=== PATIENT | male | born 1950 | race Caucasian/White ===

== ENCOUNTER 2016-09-21 10:38 | Inpatient (IN) | payer MEDICARE, OTHER ==
[2016-09-21] MEDS ORDERED: Aspirin Low Dose CHEW TAB* 81 MG PO ONE (12:00)
[2016-09-21] MEDS ORDERED: Nitroglycerin 2% OINT* 1 GM PAK TOPICAL ONE (12:07)
[2016-09-21] MEDS ORDERED: LORazepam INJ* 2 MG/ML 1 ML VIAL IV PUSH ONE (12:07)
[2016-09-21 12:22] LABS: Hematocrit 43 % (42-52); Hemoglobin 14.2 g/dl (14.0-18.0); Mean Corpuscular HGB Conc 33 g/dl (31-36); Mean Corpuscular Hemoglobin 32 pg (27-31); Mean Corpuscular Volume 95 fL (80-94); Mean Platelet Volume 8 um3 (7.4-10.4); Red Blood Count 4.46 10^6/ul (4.0-5.4); Red Cell Distribution Width 14 % (10.5-15); White Blood Count 13.5 10^3/ul (3.5-10.8)
[2016-09-21] MEDS ORDERED: Aspirin EC TAB* 325 MG ONE (12:25)
[2016-09-21] MEDS ORDERED: Nitroglycerin TAB 0.4 MG* 0.4 MG TAB ONE (12:25)
[2016-09-21] MEDS ORDERED: LORazepam INJ* 2 MG/ML 1 ML VIAL ONE ×2 (12:25→15:45)
[2016-09-21] MEDS ORDERED: Aspirin Low Dose CHEW TAB* 81 MG ONE (12:27)
[2016-09-21] MEDS ORDERED: Nitroglycerin 2% OINT* 1 GM PAK ONE (12:30)
[2016-09-21 12:33] LABS: Albumin 4.1 g/dL (3.2-5.2); BUN/Creatinine Ratio 19.8 (8-20); Calcium 8.8 mg/dL (8.6-10.3); EGFR African American 80.8 (>60); EGFR Non-African American 62.8 (>60); Globulin 3.1 g/dL (2-4); Potassium 4.4 mmol/L (3.5-5.0); Total Bilirubin 0.7 mg/dL (0.2-1.0); Total Protein 7.2 g/dL (6.4-8.9)
[2016-09-21] MEDS ORDERED: NS 0.9% 1000 ML* 1,000 ML IV ONE (12:36)
[2016-09-21] MEDS ORDERED: Al Hydrox/Mg Hydrox/Simet LIQ* 30 ML UDC PO ONE (12:41)
[2016-09-21] MEDS ORDERED: Lidocaine 2% VISCOUS* 15 ML UDC PO ONE (12:41)
--- NOTE | 2016-09-21 13:06 | RAD ---
HISTORY: Chest pain COMPARISONS: January 21, 2016 VIEWS:1: Single frontal portable view of the chest at 12:30 PM FINDINGS: LINES AND TUBES: None. CARDIOMEDIASTINAL SILHOUETTE: The cardiomediastinal silhouette is normal for portable technique. PLEURA: The costophrenic angles are sharp. No pleural abnormalities are noted. LUNG PARENCHYMA: There is patchy alveolar opacification of the right lung base ABDOMEN: The upper abdomen is clear. There is no subphrenic gas. BONES AND SOFT TISSUES: No bone or soft tissue abnormalities are noted. IMPRESSION: PATCHY RIGHT BASILAR ATELECTASIS VERSUS CONSOLIDATION.
[2016-09-21] MEDS ORDERED: Thiamine IV* 100 MG, Folic Acid IV* 1 MG, Multiple Vitamin IV ADULT* 10 ML, Magnesium S... IV ONE ×5 (13:42)
[2016-09-21] MEDS ORDERED: Lidocaine 2% VISCOUS* 15 ML UDC ONE (13:55)
[2016-09-21] MEDS ORDERED: Al Hydrox/Mg Hydrox/Simet LIQ* 30 ML UDC ONE (13:55)
[2016-09-21] MEDS ORDERED: Dextrose 50% Syringe 50 ML* 25 GM/50 ML SYRINGE IV PUSH PRN (14:05)
--- NOTE | 2016-09-21 14:46 | RAD ---
HISTORY: r facial droop, slurred speech COMPARISONS: None TECHNIQUE: Multiple contiguous axial CT scans were obtained of the head without intravenous contrast. FINDINGS: HEMORRHAGE/INFARCT: There is no hemorrhage or acute infarct. MASSES/SHIFT: There is no mass or shift. EXTRA-AXIAL SPACES: There are no extra-axial fluid collections. SULCI AND VENTRICLES: The sulci and ventricles are normal in size and position for the patient's stated age. CEREBRUM: There are no focal parenchymal abnormalities. BRAINSTEM: There are no focal parenchymal abnormalities. CEREBELLUM: There are no focal parenchymal abnormalities. VESSELS: The vessels are grossly normal. PARANASAL SINUSES: There is an air-fluid level in the right maxillary sinus ORBITS: The orbits are unremarkable. BONES AND SOFT TISSUE: There is remote post traumatic change to the right face. OTHER: None IMPRESSION: 1. NO ACUTE INTRACRANIAL PATHOLOGY. 2. MILD SINUS MUCOSAL INFLAMMATORY DISEASE, WITH AN AIR-FLUID LEVEL IN THE RIGHT MAXILLARY SINUS. IN THE CORRECT CLINICAL SETTING, THIS MAY REPRESENT ACUTE SINUSITIS
[2016-09-21] MEDS ORDERED: Ondansetron INJ* 2 MG/ML VIAL ONE (15:44)
[2016-09-21] MEDS ORDERED: Nicotine PATCH 14 MG/24 HR* PATCH ONE (15:45)
[2016-09-21] MEDS: Nicotine PATCH 14 MG/24 HR* PATCH TRANSDERM SCH (15:52)
[2016-09-21] MEDS: LORazepam INJ* 2 MG/ML 1 ML VIAL IV PUSH PRN ×2 (15:53→19:51)
[2016-09-21] MEDS: Ondansetron INJ* 2 MG/ML VIAL IV PRN ×2 (15:53→21:20)
[2016-09-21] MEDS: NS 0.9% 1000 ML* 1,000 ML IV SCH ×2 (16:19→19:32)
[2016-09-21] MEDS: Haloperidol INJ IV/IM* 5 MG/ML AMP IV SLOW PU PRN (16:59)
[2016-09-21] MEDS ORDERED: Thiamine IV* 100 MG, Folic Acid IV* 1 MG, Multiple Vitamin IV ADULT* 10 ML in NS 0.9% 1... IV ONE (17:00)
[2016-09-21] MEDS: Insulin LISPRO* 1 UNITS UNIT SUBCUT SCH ×2 (17:40→21:54)
[2016-09-21] MEDS: Calcium Carbonate CHEW TAB* 500 MG (TUMS) PO PRN (19:31)
[2016-09-21 19:33] LABS: Benzodiazepine Urine Screen None Detected (None Detect)
--- NOTE | 2016-09-21 20:35 | HP ---
HISTORY AND PHYSICAL: DATE OF ADMISSION: 09/21/16 PRIMARY CARE PROVIDER: Dr. Meredith. CHIEF COMPLAINT: Vomiting. HISTORY OF PRESENT ILLNESS: Mr. Schmidt is a 66-year-old male with a longstanding history of alcoholism, who had reportedly been sober over the last 10 months and relapsed this past drinking approximately 5 L of vodka since that time. He presented to the emergency room today because of persistent vomiting. The patient in general is a very poor historian. His speech is very slurred. He is able to tell me that his last drink was at approximately 9 o' clock this morning. The ER provider was able to get out that the patient had been having chest pain. When I asked the patient about this, he only states that it becomes worse with stress. He states that his marriage is failing and this is upsetting him. He denies any shortness of breath at this point. The patient has himself not noted the slurred speech or right facial droop that I questioned. Again, it is difficult to obtain any history from the patient as he rambles. PAST MEDICAL HISTORY: 1. Alcoholism. 2. History of PTSD. 3. Type 2 diabetes. 4. COPD. 5. Ongoing tobacco abuse. 6. Chronic pancreatitis. 7. Anxiety. 8. History of peptic ulcer disease. PAST SURGICAL HISTORY: 1. Laparoscopic surgical evaluation of pancreatitis. 2. Tonsillectomy. 3. Vasectomy and vasectomy reversal. MEDICATIONS: 1. Lantus 34 units subcutaneous q.h.s. 2. FiberCon 1250 mg p.o. daily. 3. Ranitidine 150 mg p.o. b.i.d. 4. Dextrose 15 g p.o. daily p.r.n. blood sugar less than 60. ALLERGIES: No known drug allergies. FAMILY HISTORY: The patient's dad at age of 47 of an [place]. Mom had cancer. 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 He is a disabled . He smokes half a pack per day. He smokes up to 1 pack per day. He has been smoking for 50 years. He binge drinks. He states that he will smoke marijuana on occasion. He has 3 children. He is unable to identify who he would want as healthcare proxy. REVIEW OF SYSTEMS: The patient denies any fevers or chills. He states his appetite has been poor since Tuesday noon. He admits to chest pain very vaguely and is unable to give me any further information on this. He admits to cough and shortness of breath, but again is unable to elaborate. He admits to nausea and vomiting. No abdominal pain. No constipation or diarrhea. No dysuria. No focal weakness or sensory loss per the patient. No sudden changes in vision per the patient. No dysphagia. No joint pains or muscle pains out of ordinary. No rashes. He does admit to anxiety. PHYSICAL EXAMINATION GENERAL: The patient is a well-developed, middle-aged, thin male, lying in the stretcher, appears to be in no acute distress. VITAL SIGNS: Blood pressure 146/72, pulse 101, respirations 24, temp 97.4, O2 sat 96% on 2 L. HEENT: Pupils are equal, they are round. Extraocular muscles intact. Oropharynx is clear. Oral mucosa is moist. There is no submandibular, cervical , or supraclavicular adenopathy. Thyroid is not enlarged. No thyroid nodules noted. PULMONARY: Lungs are clear to auscultation bilaterally with slightly decreased breath sounds in all lung godinez. CARDIAC: Normal S1, S2. Heart rate is tachycardic, but regular. I do not appreciate any murmurs. ABDOMEN: Bowel sounds present. Abdomen is soft, nontender, nondistended. EXTREMITIES: There is no lower extremity edema. MUSCULOSKELETAL: There is no cyanosis or clubbing of the digits. There is full active range of motion of all 4 extremities. NEURO: Cranial nerves II through XII are evaluated. The patient appears to have a right facial droop; however, his dentition is asymmetrical on the upper jaw making this somewhat of a difficult evaluation. Upper and lower extremity strength is 5/5 and symmetric bilaterally. PSYCH: The patient is alert, he is oriented x3. He is an incredibly poor historian. He almost seems as if he is intoxicated. Again, he rambles quite a bit. SKIN: Warm and dry. There are no rashes. DIAGNOSTIC STUDIES/LAB DATA: WBC 13.5, hemoglobin 14.2, hematocrit 43, platelets 307. Sodium 139, potassium 4.4, chloride 100, CO2 15, BUN 23, creatinine 1.16, glucose 100, lactic acid 7.5, calcium 8.8. Bilirubin 0.7, AST 37, ALT 23, alk phos 67. Troponin 0. Albumin 4.1. EtOH 229. EKG reveals sinus tachycardia without any acute ST-T wave abnormalities. Chest x-ray reveals patchy right basilar atelectasis versus consolidation. ASSESSMENT AND PLAN: Mr. Schmidt is a 66-year-old male with a longstanding history of alcoholism, anxiety-related posttraumatic stress disorder in serving in [place], and type 2 diabetes, who presents to the emergency room with complaints of ongoing vomiting after binge drinking for the last 5 days, approximately 5 L of vodka over that period of time and also complains of chest pain. 1. Vomiting. I suspect this is related to his alcohol intake. He likely has some alcoholic gastritis as well. The patient had been admitted for this in the past. We will go ahead and make sure he is on a PPI to help with any gastritis that he may be suffering from. He has not vomited recently in the emergency room. He will have p.r.n. Zofran available for nausea. He will be aggressively hydrated, initially with a banana bag, followed by normal saline at 125 mL per hour. 2. Lactic acidosis. I suspect this is related to the patient's drinking alcohol and likely not eating much over the last several days. His lactic acid level will be rechecked this evening at 1800. There are no clear signs of infection at this point despite an elevated white blood cell count. I am going to hold off on antibiotics until something clears itself. 3. Chest pain. The patient really does not describe a chest pain well for me. He does have risk factors for coronary artery disease including his type 2 diabetes, smoking history, age, and a family history. The patient will be continued on aspirin 81 mg p.o. daily. Serial troponins and EKGs will be obtained. I think, however, the patient's chest pain could be secondary to the profuse vomiting that he had been doing. 4. Alcoholism. Currently, the patient is still intoxicated. He will be placed on the [facility] protocol. His alcohol level is elevated at 229. The patient states that he has never withdrawn in the past or required hospitalization for withdrawal in the past. Social work evaluation will be requested. 5. Type 2 diabetes. The patient will be maintained on his usual dose of Lantus with a.c., h.s. glucoses. 6. Posttraumatic stress disorder. The patient states that he takes Klonopin at home for this. This is not on his med list obtained in the emergency room. At this point, he will be on Ativan for WAM protocol and this can be used for anxiety as well. 7. Slurred speech and right facial droop. It is hard to know if this patient' s slurred speech is related to him being intoxicated or if this is truly a neurologic issue. He does have a slight right facial droop; however, his dentition is asymmetric in the upper jaw. I will go ahead and send him for a CAT scan, however. Again, he will be started on an aspirin. 8. DVT prophylaxis. According to the Adult Thrombosis Prophylaxis Risk Factor Assessment Guide, the patient has a total risk factor score of 2 making him moderate risk. He will be placed on heparin 5000 units subcutaneous q.12 hours. 9. Code status is full and again the patient is unable to designate a healthcare proxy at this point. TIME SPENT: Sixty-five minutes was spent admitting this patient. CC: Dr. Meredith* [id number]/CPS #: [id number] [facility] HOSPITALKaylah
[2016-09-21] MEDS ORDERED: Omeprazole CAP* 20 MG PO SCH (21:00)
[2016-09-21] MEDS: Nicotine Patch Removal NOTE FOLLOW UP SCH (21:23)
[2016-09-21] MEDS: Heparin VIAL(*) 5000 UNITS/ML VIAL (FIVE THOUSAND) SUBCUT SCH (21:24)
[2016-09-21] MEDS: clonazePAM TAB(*) 1 MG PO PRN (21:56)
[2016-09-22] MEDS: Calcium Carbonate CHEW TAB* 500 MG (TUMS) PO PRN (00:27)
[2016-09-22] MEDS: Haloperidol INJ IV/IM* 5 MG/ML AMP IV SLOW PU PRN (00:28)
[2016-09-22] MEDS: LORazepam INJ* 2 MG/ML 1 ML VIAL IV PUSH PRN (00:31)
[2016-09-22] MEDS: NS 0.9% 1000 ML* 1,000 ML IV SCH (03:25)
[2016-09-22 06:20] LABS: Hemoglobin 12.3 g/dl (14.0-18.0); Mean Platelet Volume 7 um3 (7.4-10.4)
[2016-09-22 06:29] LABS: Hematocrit 36 % (42-52); Mean Corpuscular HGB Conc 34 g/dl (31-36); Mean Corpuscular Hemoglobin 32 pg (27-31); Mean Corpuscular Volume 95 fL (80-94); Red Blood Count 3.81 10^6/ul (4.0-5.4); Red Cell Distribution Width 14 % (10.5-15); White Blood Count 8.4 10^3/ul (3.5-10.8)
[2016-09-22 06:34] LABS: BUN/Creatinine Ratio 20.4 (8-20); Calcium 8.5 mg/dL (8.6-10.3); EGFR African American 104.2 (>60); Potassium 4.2 mmol/L (3.5-5.0)
[2016-09-22] MEDS: Insulin LISPRO* 1 UNITS UNIT SUBCUT SCH ×6 (08:45→20:17)
[2016-09-22] MEDS: Heparin VIAL(*) 5000 UNITS/ML VIAL (FIVE THOUSAND) SUBCUT SCH ×2 (08:47→19:23)
[2016-09-22] MEDS: Aspirin EC Low Dose* 81 MG TAB.EC PO SCH (08:49)
[2016-09-22] MEDS: Nicotine PATCH 14 MG/24 HR* PATCH TRANSDERM SCH (08:50)
[2016-09-22] MEDS: Pantoprazole IV* 40 MG IV SCH (08:51)
--- NOTE | 2016-09-22 10:09 | PN ---
Subjective Date of Service: 09/22/16 Interval History: This is a 66 yo male with long history of alcoholism who had been sober for several months up until where he began drinking again. He came to the ER for intractable vomiting. There was question about complaints of chest pain and a slight facial droop observed and slurred speech. These findings were difficult to interpret as he was still intoxicated. Patient required IV Ativan overnight for acute withdrawal symptoms. This am, patient reports no further nausea/vomiting. He tolerated a full breakfast. Denies abdominal pain or diarrhea. No complaints of CP or SOB. He feels that his speech is normal. Objective Active Medications: Aspirin (Aspirin Ec Low Dose*) 81 mg PO DAILY [facility] Last Admin: 09/22/16 08:49 Dose: 81 mg Calcium Carbonate (Tums*) 500 mg PO Q4H PRN PRN Reason: INDIGESTION Last Admin: 09/22/16 00:27 Dose: 500 mg Clonazepam (Klonopin Tab(*)) 1 mg PO BEDTIME PRN PRN Reason: SLEEP Last Admin: 09/21/16 21:56 Dose: 1 mg Dextrose (D50w Syringe 50 Ml*) 12.5 gm IV PUSH .FOR FS < 60 - SS PRN PRN Reason: FS < 60 Haloperidol Lactate (Haldol Inj Iv/Im*) 0.5 mg IV SLOW PU Q6H PRN PRN Reason: AGITATION Last Admin: 09/22/16 00:28 Dose: 0.5 mg Heparin Sodium (Porcine) (Heparin Vial(*)) 5,000 units SUBCUT Q12HR [facility] Last Admin: 09/22/16 08:47 Dose: 5,000 units Sodium Chloride (Ns 0.9% 1000 Ml*) 1,000 mls @ 125 mls/hr IV PER RATE [facility] Last Admin: 09/22/16 03:25 Dose: 125 mls/hr Insulin Human Lispro (Humalog*) 0 units SUBCUT ACHS BRYCE PRN Reason: Protocol Last Admin: 09/22/16 08:45 Dose: 2 unit Lorazepam (Ativan Inj*) 0 mg IV PUSH Q4H PRN; Protocol PRN Reason: alcohol withdrawal Last Admin: 09/22/16 00:31 Dose: 2 mg Nicotine (Nicotine Patch 14 Mg/24 Hr*) 1 patch TRANSDERM DAILY [facility] Last Admin: 09/22/16 08:50 Dose: 1 patch Ondansetron HCl (Zofran Inj*) 4 mg IV Q6H PRN PRN Reason: NAUSEA Last Admin: 09/21/16 21:20 Dose: 4 mg Pantoprazole Sodium (Protonix Iv*) 40 mg IV DAILY [facility] Last Admin: 09/22/16 08:51 Dose: 40 mg Pharmacy Profile Note (Nicotine Patch Removal Note*) 1 note FOLLOW UP 2100 [facility] Last Admin: 09/21/16 21:23 Dose: 1 note Vital Signs: Temp Pulse Resp BP Pulse Ox 97.8 F 83 14 137/67 96 09/22/16 08:00 09/22/16 08:00 09/22/16 08:28 09/22/16 08:00 09/22/16 08:00 Oxygen Devices in Use Now: None Appearance: Well appearing, in NAD Neck: NL Appearance and Movements; NL JVP Respiratory: Symmetrical Chest Expansion and Respiratory Effort, Clear to Auscultation Cardiovascular: NL Sounds; No Murmurs; No JVD, RRR Abdominal: NL Sounds; No Tenderness; No Distention Extremities: No Edema Skin: No Rash or Ulcers Neurological: Alert and Oriented x 3 Result Diagrams: 09/22/16 05:55 09/22/16 05:55 Diagnostic Imaging: CT brain - NAD CXR - possible R basilar infiltrate v atelectasis EKG - sinus tach Assess/Plan/Problems-Billing Assessment: This is a 66 yo gentleman with a long h/o alcoholism as well as PTSD, COPD, DM, chronic pancreatitis and anxiety who presented with complaints of intractable vomiting. - Patient Problems (1) Intractable vomiting Comment: Resolved Likely related to ETOH induced gastritis No residual pain, tolerating a full diet Cont PPI (2) Alcohol withdrawal Comment: Scored on [facility] protocol overnight Appears well this am, no tremor, diaphoresis, n/v, tachycardia or hypertension Cont to monitor (3) Lactic acidosis Comment: Improving Likely due to ETOH consumption (4) Neurological deficit, transient Comment: Some concern for R facial droop and slurred speech on admission Nl CT Likely due to acute intoxication, no persistent deficit on exam (5) Insulin dependent diabetes mellitus Comment: Cont Lantus and SS Humalog (6) Anxiety (7) COPD (chronic obstructive pulmonary disease) Comment: No acute exacerbation, no home medications listed (8) Chronic pancreatitis Comment: No abdominal pain (9) Hearing impairment (10) Post traumatic stress disorder (PTSD) (11) Tobacco abuse
[2016-09-22] MEDS ORDERED: Acetaminophen TAB* 325 MG PO PRN (10:10)
[2016-09-22] MEDS ORDERED: LORazepam TAB(*) 1 MG PO SCH (11:00)
[2016-09-22] MEDS ORDERED: Dextrose 50% Syringe 50 ML* 25 GM/50 ML SYRINGE IV PUSH PRN (12:13)
[2016-09-22] MEDS: clonazePAM TAB(*) 1 MG PO PRN (19:23)
[2016-09-22] MEDS ORDERED: clonazePAM TAB(*) 1 MG PO PRN (19:34)
[2016-09-22] MEDS: Nicotine Patch Removal NOTE FOLLOW UP SCH (20:17)
[2016-09-22] MEDS ORDERED: Insulin GLARGINE(*) 1 UNITS UNIT SUBCUT SCH (21:00)
[2016-09-23] MEDS: Haloperidol INJ IV/IM* 5 MG/ML AMP IV SLOW PU PRN (01:49)
[2016-09-23] MEDS ORDERED: Haloperidol INJ IV/IM* 5 MG/ML AMP IV ONE (02:34)
[2016-09-23 07:47] VITALS: BP 119/82
[2016-09-23] MEDS ORDERED: Folic Acid TAB* 1 MG PO SCH (09:00)
[2016-09-23] MEDS ORDERED: Multivitamins/Minerals TAB PO SCH (09:00)
[2016-09-23] MEDS ORDERED: Thiamine TAB* 100 MG TAB PO SCH (09:00)
[2016-09-23] MEDS ORDERED: Nicotine PATCH 14 MG/24 HR* PATCH TRANSDERM SCH (09:30)
[2016-09-23] MEDS: Pantoprazole IV* 40 MG IV SCH (09:42)
[2016-09-23] MEDS: Heparin VIAL(*) 5000 UNITS/ML VIAL (FIVE THOUSAND) SUBCUT SCH (09:43)
[2016-09-23] MEDS: Aspirin EC Low Dose* 81 MG TAB.EC PO SCH (09:44)
[2016-09-23] MEDS: Insulin LISPRO* 1 UNITS UNIT SUBCUT SCH ×2 (09:44→09:45)
[2016-09-23] MEDS ORDERED: Omeprazole CAP* 20 MG PO ONE (09:46)
[2016-09-23] MEDS ORDERED: Omeprazole CAP* 20 MG ONE (09:47)
--- NOTE | 2016-09-23 21:05 | DS ---
DISCHARGE SUMMARY: DATE OF ADMISSION: 09/21/16 DATE OF DISCHARGE: 09/23/16 PRIMARY CARE PROVIDER: Dr. Meredith with [facility]. DISCHARGING PROVIDER: VICENTE Angel. SUPERVISING PHYSICIAN: Marizol Barron MD.* (DICTATED BY VICENTE ANGEL) PRIMARY DISCHARGE DIAGNOSES: 1. Intractable vomiting secondary to alcohol-induced gastritis - resolved. 2. Alcohol withdrawal - resolved. 3. Lactic acidosis secondary to alcohol consumption. 4. Transient neurologic deficit likely secondary to alcohol intoxication. SECONDARY DISCHARGE DIAGNOSES: 1. Insulin-dependent diabetes. 2. Anxiety and posttraumatic stress disorder. 3. Chronic obstructive pulmonary disease without acute exacerbation. 4. Chronic pancreatitis without acute exacerbation. 5. Hearing impairment. HOSPITAL IMAGIN. Chest x-ray shows patchy right basilar atelectasis versus consolidation. 2. CT of the brain shows no acute intracranial pathology. 3. EKG demonstrates sinus rhythm without ischemic changes. HOSPITAL COURSE: This is 66-year-old gentleman with a long history of alcoholism but had been sober for approximately 10 months up until about 3 days prior to admission. He had been undergoing significant amount of marital stress and started drinking again. He came to the emergency department. He could not stop vomiting. No hematemesis or coffee-ground emesis noted. Initial labs demonstrated mild leukocytosis with white blood cell count of 13.5, normal hemoglobin of 14.2. Comprehensive metabolic panel was significant for serum bicarb of 15 with an elevated anion gap of 24 consistent with his alcohol consumption. His initial lactic acid was also quite elevated at 7.5. Toxicology screen was negative with the exception of alcohol, which demonstrated intoxication at 229. There was some initial concern as to whether the patient had a slight facial droop and some slurred speech. The following day on exam, this seemed to have resolved and was likely entry level marketing representative of intoxication rather than a true neurologic deficit. CT of the brain was performed, which showed no acute pathology. The patient's complaint of nausea and vomiting resolved with use of PPI. He is able to tolerate a regular diet without symptoms. The patient's first night of hospitalization, he was scoring with WAM protocol requiring IV Ativan for treatment. The second day of hospitalization, his withdrawal symptoms resolved completely for a period of approximately 24 hours. DISPOSITION: The patient is being discharged to home. No changes to home medications made. Offered numerous accounts referral for counseling services and outpatient substance abuse support, which the patient declined. Recommend close followup with the patient's primary care provider regarding this hospitalization. VICENTE ANGEL CC: Dr. Meredith* [id number]/CPS #: [id number] [facility]
--- NOTE | 2016-09-24 18:39 | ED ---
Fred Jones Billy, scribed for Erik Avendaño MD on 09/21/16 at 1208 . HPI Chest Pain - HPI Summary HPI Summary: Patient is a 66 year-old male coming to [facility] for evaluation of left-sided chest pain and shortness of breath since yesterday. He states that he has been heavily binge-drinking in the last several days, stating that he "must have drank 5 liters of vodka." His last drink today was at 0900. Denies any SI. He also reports N/V. - History of Current Complaint Chief Complaint: EDChestPainROMI Time Seen by Provider: 09/21/16 10:46 Hx Obtained From: Patient Onset/Duration: Started Days Ago Timing: Constant Initial Severity: Moderate Current Severity: Moderate Chest Pain Location: Left Anterior Chest Pain Radiates: No Aggravating Factor(s): Nothing Alleviating Factor(s): Nothing Associated Signs and Symptoms: Positive: Chest Pain, Shortness of Breath, Nausea , Vomiting - Allergy/Home Medications Allergies/Adverse Reactions: Allergies Allergy/AdvReac Type Severity Reaction Status Date / Time Flu Virus Vaccine Allergy Unknown Verified 09/21/16 12:11 Reaction Details Codeine AdvReac Intermediate GI Upset Verified 09/21/16 12:11 shrimp Allergy Severe Hives Uncoded 09/21/16 12:11 Home Medications: Home Medications Calcium Polycarbophil TAB* [Fibercon TAB*] 1,250 mg PO DAILY 09/21/16 [History Confirmed 09/21/16] Dextrose (Diabetic Use) [Dex4 Fast Acting Glucose] 15 gm PO DAILY PRN 09/21/16 [ History Confirmed 09/21/16] Dextrose (Diabetic Use) [Glucose] 16 gm PO DAILY PRN 09/21/16 [History Confirmed 09/21/16] Insulin GLARGINE(*) [Lantus(*)] 34 units SUBCUT BEDTIME 09/21/16 [History Confirmed 09/21/16] Ranitidine TAB (NF) [Zantac TAB (NF)] 150 mg PO BID 09/21/16 [History Confirmed 09/21/16] PMH/Surg Hx/FS Hx/Imm Hx Cardiovascular History: Reports: Hx Hypercholesterolemia, Hx Hypertension Denies: Hx Coronary Artery Disease EENT History: Reports: Hx Hearing Problem Infectious Disease History: No Infectious Disease History: Denies: Traveled Outside the [place] in Last 30 Days - Family History Known Family History: Positive: Cardiac Disease - Father at age 43 - Social History Alcohol Use: Occasionally Hx Tobacco Use: Yes Smoking Status (MU): Current Every Day Smoker Review of Systems Negative: Fever, Chills Negative: Erythema Negative: Sore Throat Positive: Chest Pain Positive: Shortness Of Breath. Negative: Cough Positive: Vomiting, Nausea. Negative: Abdominal Pain Negative: dysuria, hematuria Negative: Myalgia, Edema Negative: Rash All Other Systems Reviewed And Are Negative: Yes Physical Exam - Summary Physical Exam Summary: Constitutional: Well-developed, Well-nourished, Alert. (-) Distressed Skin: Warm, Dry HENT: Normocephalic; Atraumatic. There is an obvious odor of alcohol. Poor dentition. Eyes: Conjunctiva normal Neck: Musculoskeletal ROM normal neck. (-) JVD, (-) Stridor, (-) Tracheal deviation Cardio: Rhythm regular, rate normal, Heart sounds normal; Intact distal pulses; The pedal pulses are 2+ and symmetric. Radial pulses are 2+ and symmetric. (-) Murmur Pulmonary/Chest wall: Effort normal. (-) Respiratory distress, (-) Wheezes, (-) Rales Abd: Soft, (-) Tenderness, (-) Distension, (-) Guarding, (-) Rebound Musculoskeletal: (-) Edema Lymph: (-) Cervical adenopathy Neuro: Alert, Oriented x3. Mildly slurred speech. Psych: Mood and affect Normal Triage Information Reviewed: Yes Vital Signs On Initial Exam: Initial Vitals Temp Pulse Resp BP Pulse Ox 97.9 F 105 24 139/67 95 09/21/16 10:40 09/21/16 10:40 09/21/16 10:40 09/21/16 10:40 09/21/16 10:40 Vital Signs Reviewed: Yes - Steven Coma Scale Coma Scale Total: 15 Diagnostics - Vital Signs Vital Signs Temp Pulse Resp BP Pulse Ox 09/21/16 11:30 103 22 131/57 95 09/21/16 11:00 104 19 125/75 97 09/21/16 10:47 97.4 F 102 22 115/76 96 09/21/16 10:46 104 23 93 09/21/16 10:44 115/76 09/21/16 10:40 97.9 F 105 24 139/67 95 - Laboratory Result Diagrams: 09/21/16 10:45 09/21/16 10:45 Lab Statement: Any lab studies that have been ordered have been reviewed, and results considered in the medical decision making process. - Radiology CXR Radiology Interpretation Completed By: Radiologist - PATCHY RIGHT BASILAR ATELECTASIS VERSUS CONSOLIDATION. - EKG 1036 EKG Interpretation: sinus tachycardia 108 bpm, no STEMI Re-Evaluation - Re-Evaluation First Eval Re-Evaluation Time: 13:33 Change: Unchanged Comment: Facial asymmetry is present, thought to be due to missing dentition, no tongue deviation. Due to loss of coordination prior to drinking, stroke workup will be undertaken by the inpatient team. Chest Pain Course/Dx - Course Assessment/Plan: Patient is a 66 year-old male coming to [facility] for evaluation of EtOH intoxication and chest pain. EKG shows sinus tachycardia 108 bpm, no STEMI. CXR shows patchy right basilar atelectasis versus consolidation. Troponin is 0.00. Lactic acid is 7.5. Patient care was discussed with Dr. Murray who admits the patient to her services. - Diagnoses Provider Diagnoses: Alcoholic ketosis, Alcoholic gastritis, Chest pain, unspecified - Provider Notifications Discussed Care Of Patient With: Dr. Murray (hospitalist) at 1240. 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/Release Non-Paretic Hand: Both Correctly Best Gaze (Only Horizontal Eye Movement): Normal Visual Field Testing: No Visual Loss Facial Paresis-Pt to Smile & Close Eyes or Grimace Symmetry: Normal/Symmetrical Motor Function - Right Arm: No Drift-Holds 10 Seconds Motor Function - Left Arm: No Drift-Holds 10 Seconds Motor Function - Right Leg: No Drift-Holds 10 Seconds Motor Function - Left Leg: No Drift-Holds 10 Seconds Limb Ataxia-Must be out of Proportion to Weakness Present: Absent Sensory (Use Pinprick to Test Arms/Legs/Trunk/Face): Normal Best Language (Describe Picture, Name Items): No Aphasia Dysarthria (Read Several Words): Slurs Some Words Extinction and Inattention: No Abnormality Total Score: 1 The documentation as recorded by the scribe, Ibarra,Emmanuel accurately reflects the service I personally performed and the decisions made by me, Erik Avendaño MD.
== END 2016-09-23 09:30 | disposition home or self-care (01) | DRG 897 ==
LOC: ED 10:38 → MEDTELE 12:42 → OBSVTOIN 09-22 10:09
PROVIDERS: ADMIT Hospitalist; ATTEND Internal Medicine
DX: F10.239 Alcohol dependence with withdrawal, unspecified (principal); E87.2 Acidosis; K86.1 Other chronic pancreatitis; E11.9 Type 2 diabetes mellitus without complications; D72.829 Elevated white blood cell count, unspecified; J44.9 Chronic obstructive pulmonary disease, unspecified; J98.11 Atelectasis; K29.20 Alcoholic gastritis without bleeding; F10.229 Alcohol dependence with intoxication, unspecified; E78.00 Pure hypercholesterolemia, unspecified; H91.90 Unspecified hearing loss, unspecified ear; R29.701 NIHSS score 1; F43.10 Post-traumatic stress disorder, unspecified; F41.9 Anxiety disorder, unspecified; F17.210 Nicotine dependence, cigarettes, uncomplicated; F12.90 Cannabis use, unspecified, uncomplicated; Y90.7 Blood alcohol level of 200-239 mg/100 ml; R47.81 Slurred speech; R29.810 Facial weakness; R29.818 Other symptoms and signs involving the nervous system; Z88.7 Allergy status to serum and vaccine; Z88.5 Allergy status to narcotic agent; Z91.013 Allergy to seafood; Z82.49 Family history of ischemic heart disease and other diseases of the circulatory system; Z87.11 Personal history of peptic ulcer disease; Z80.9 Family history of malignant neoplasm, unspecified
CPT/HCPCS: 36415; 70450; 71010; 80048; 80053; 80307; 80320; 83605; 84484; 85025; 93005; 99406; A9270-GY; G0378; G0480; J1630; J1644; J2060; J2405; J3475

== ENCOUNTER 2016-10-08 07:55 | Emergency (ER) | payer OTHER ==
[2016-10-08] MEDS ORDERED: diPHENhydraMINE IV* 50 MG/ML 1 ml VIAL (BENADRYL) IV ONE (08:53)
[2016-10-08] MEDS ORDERED: NS 0.9% 1000 ML* 2,000 ML IV ONE (08:54)
--- NOTE | 2016-10-08 09:15 | RAD ---
INDICATION: Chest pain. COMPARISON: Comparison is made with a prior chest x-ray study from September 21, 2016. TECHNIQUE: A portable view of the chest was obtained. FINDINGS: Cardiac and mediastinal contours appear to be within normal limits. The lungs are clear. No pleural effusion is seen. IMPRESSION: NO EVIDENCE FOR ACUTE DISEASE.
[2016-10-08] MEDS: Ondansetron INJ* 2 MG/ML VIAL IV ONE ×2 (09:38→11:59)
[2016-10-08 09:49] LABS: Hematocrit 48 % (42-52); Hemoglobin 16.5 g/dl (14.0-18.0); Mean Corpuscular HGB Conc 34 g/dl (31-36); Mean Corpuscular Hemoglobin 33 pg (27-31); Mean Corpuscular Volume 95 fL (80-94); Mean Platelet Volume 7 um3 (7.4-10.4); Red Blood Count 5.09 10^6/ul (4.0-5.4); Red Cell Distribution Width 14 % (10.5-15); White Blood Count 8.9 10^3/ul (3.5-10.8)
[2016-10-08 10:01] LABS: Albumin 4.6 g/dL (3.2-5.2); BUN/Creatinine Ratio 14.3 (8-20); Calcium 9.5 mg/dL (8.6-10.3); EGFR African American 98.1 (>60); EGFR Non-African American 76.3 (>60); Globulin 3.6 g/dL (2-4); Potassium 4.2 mmol/L (3.5-5.0); Total Bilirubin 0.5 mg/dL (0.2-1.0); Total Protein 8.2 g/dL (6.4-8.9)
[2016-10-08 10:02] LABS: Troponin I 0.01 ng/mL (<0.04)
[2016-10-08] MEDS ORDERED: Pantoprazole IV* 80 MG in NS 0.9% 250 ML* 250 ML IVPB ONE (10:23)
[2016-10-08 11:15] VITALS: BP 111/70
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
[2016-10-08] MEDS ORDERED: Pantoprazole IV* 40 MG ONE (11:25)
[2016-10-08] MEDS ORDERED: Ondansetron INJ* 2 MG/ML VIAL ONE (11:56)
== END 2016-10-08 12:15 | disposition home or self-care (01) ==
LOC: ED 07:55
DX: R10.13 Epigastric pain (principal); R07.9 Chest pain, unspecified; R06.02 Shortness of breath; F10.10 Alcohol abuse, uncomplicated; R11.2 Nausea with vomiting, unspecified; F17.210 Nicotine dependence, cigarettes, uncomplicated; Y90.8 Blood alcohol level of 240 mg/100 ml or more
CPT/HCPCS: 36415; 71010; 80053; 80320; 83605; 83690; 83880; 84484; 85025; 93005; 96374; 96375; 99284; G0480; J1200; J2405

== ENCOUNTER 2016-10-10 19:04 | Emergency (ER) | payer OTHER ==
[2016-10-10] MEDS ORDERED: Sucralfate TAB* 1 GM PO ONE (19:36)
[2016-10-10] MEDS ORDERED: Pantoprazole IV* 40 MG IV ONE (19:36)
[2016-10-10] MEDS ORDERED: diPHENhydraMINE IV* 50 MG/ML 1 ml VIAL (BENADRYL) IV ONE (19:36)
[2016-10-10] MEDS ORDERED: Nicotine PATCH 21 MG/24 HR* PATCH TRANSDERM ONE (19:40)
[2016-10-10 19:55] LABS: Hematocrit 41 % (42-52); Hemoglobin 14.3 g/dl (14.0-18.0); Mean Corpuscular HGB Conc 35 g/dl (31-36); Mean Corpuscular Hemoglobin 33 pg (27-31); Mean Corpuscular Volume 94 fL (80-94); Mean Platelet Volume 7 um3 (7.4-10.4); Red Blood Count 4.36 10^6/ul (4.0-5.4); Red Cell Distribution Width 14 % (10.5-15); White Blood Count 9.2 10^3/ul (3.5-10.8)
[2016-10-10 20:11] LABS: Albumin 4.2 g/dL (3.2-5.2); BUN/Creatinine Ratio 7.6 (8-20); C Reactive Protein 29.48 mg/L (< 5.00); Calcium 10.1 mg/dL (8.6-10.3); EGFR African American 105.5 (>60); EGFR Non-African American 82.1 (>60); Globulin 2.8 g/dL (2-4); Potassium 4.1 mmol/L (3.5-5.0); Total Bilirubin 0.7 mg/dL (0.2-1.0)
[2016-10-10] MEDS ORDERED: Thiamine IV* 100 MG, Folic Acid IV* 1 MG, Multiple Vitamin IV ADULT* 10 ML in NS 0.9% 1... IV ONE (20:11)
[2016-10-10] MEDS ORDERED: Magnesium Sulfate 1 GM IV* 1 GM/100 ML BAG IV ONE (20:12)
[2016-10-10 20:13] LABS: Troponin I 0.01 ng/mL (<0.04)
[2016-10-10 22:25] LABS: Urine Bacteria Absent (Absent); Urine Bilirubin Negative (Negative); Urine Glucose 3+(>=500 mg/dL) (Negative); Urine Nitrite Negative (Negative)
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
[2016-10-10] MEDS ORDERED: Ondansetron INJ* 2 MG/ML VIAL ONE (22:59)
[2016-10-10] MEDS ORDERED: Ondansetron INJ* 2 MG/ML VIAL IV ONE (22:59)
[2016-10-10 23:28] VITALS: BP 142/81
== END 2016-10-10 23:36 | disposition home or self-care (01) ==
LOC: ED 19:04
DX: R07.9 Chest pain, unspecified (principal); R06.02 Shortness of breath; F17.210 Nicotine dependence, cigarettes, uncomplicated
CPT/HCPCS: 36415; 80053; 80320; 81003; 81015; 83605; 83690; 84484; 85025; 85610; 86140; 93005; 96365; 99284; A9270-GY; G0480; J1200; J2405

== ENCOUNTER 2018-04-05 17:14 | Emergency (ER) | payer OTHER ==
[2018-04-05] MEDS ORDERED: Nicotine Inhaler* 10 MG AMP INH PRN (17:23)
[2018-04-05] MEDS ORDERED: LORazepam TAB(*) 1 MG PO ONE (17:27)
--- NOTE | 2018-04-05 17:27 | ED ---
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 Per EMS, pt says he is "done" and ready to "put a bullet in his head." Pt was in [place] for past 1.5 years and returned to [place] on 04/01/2018. Pt says he has been drinking and smoking all day. Associated sx: SOB, cough, worsening anxiety. POC glucose was 404 by EMS. Pt requesting something to calm himself down. Pt called ambulance himself. Pt states he did not ingest any substances other than alcohol. Vitals at bedside: 132/77, HR: 107 bpm. Home Medications Medication Instructions Recorded Confirmed Type Calcium Polycarbophil TAB* 1,250 mg PO DAILY 09/21/16 09/21/16 History [Fibercon TAB*] Dextrose [Dex4 Glucose] 15 gm PO DAILY PRN 09/21/16 09/21/16 History Dextrose [Glucose] 16 gm PO DAILY PRN 09/21/16 09/21/16 History Insulin GLARGINE(*) [Lantus(*)] 34 units SUBCUT BEDTIME 09/21/16 09/21/16 History Ranitidine TAB (NF) [Zantac TAB 150 mg PO BID 09/21/16 09/21/16 History (NF)] Ondansetron ODT TAB* [Zofran 4 MG 4 mg PO Q6H PRN #20 tab.odt 10/08/16 Rx Odt TAB*] - History Of Current Complaint Time Seen by Provider: 04/05/18 17:22 Hx Obtained From: Patient, EMS Onset/Duration: Lasting Hours, Still Present Timing: Constant Severity Initially: Moderate Severity Currently: Severe Character: Depressed, Anxious Aggravating Factor(s): Recent Stress - return from [place] after 1.5 yrs, lives alone, Alcohol Use Alleviating Factor(s): Nothing Associated Signs And Symptoms: Positive: Social Isolation Has Suicidal: Reports: Thoughts Has Homicidal: Denies: Thoughts Ingestion History: Type/Name Of Drug - alcohol, Amount Ingested - unknown, Approximate Time Of Ingestion - "all day" - Risk Factor(s) Completed Suicide Risk Factors: Male, Age Greater Than 60, Living Alone - Allergies/Home Medications Allergies/Adverse Reactions: Allergies Allergy/AdvReac Type Severity Reaction Status Date / Time codeine Allergy Intermediate GI Upset Verified 04/05/18 18:56 influenza virus vaccine, Allergy Unknown Verified 04/05/18 18:56 specific Reaction Details shrimp Allergy Severe Hives Uncoded 10/10/16 21:15 PMH/Surg Hx/FS Hx/Imm Hx Previously Healthy: No Endocrine/Hematology History: Reports: Hx Diabetes Denies: Hx Anticoagulant Therapy, Hx Thyroid Disease Cardiovascular History: Reports: Hx Hypercholesterolemia, Hx Hypertension Denies: Hx Congestive Heart Failure, Hx Coronary Artery Disease, Hx Pacemaker /ICD Respiratory History: Reports: Hx Chronic Obstructive Pulmonary Disease (COPD) Denies: Hx Asthma GI History: Reports: Hx Gastroesophageal Reflux Disease - GERD/PUD, Hx Gastrointestinal Bleed, Other GI Disorders - PANCREATITIS, gastritis Denies: Hx Ulcer Musculoskeletal History: Reports: Hx Arthritis, Hx Back Problems - CHRONIC Denies: Hx Bursitis, Hx Congenital Bone Abnormalities Sensory History: Reports: Hx Contacts or Glasses, Hx Vision Problem - s/p eye surgery, Hx Deafness - VERY [place], Hx Hearing Aid, Hx Hearing Problem Opthamlomology History: Reports: Hx Contacts or Glasses, Hx Vision Problem - s/ p eye surgery Neurological History: Denies: Hx Dementia, Hx Seizures Psychiatric History: Reports: Hx Anxiety, Hx Depression, Hx Post Traumatic Stress Disorder - [place] V[employer] Denies: Hx Attention Deficit Hyperactivity Disorder, Hx Eating Disorder, Hx Panic Disorder, Hx Inpatient Treatment, Hx Schizophrenia, Hx Bipolar Disorder, Hx Suicide Attempt, Hx of Violent Episodes Against Others, Other Psychiatric Issues/Disorders - Cancer History Cancer Type, Location and Year: SKIN CANCER - Surgical History Surgery Procedure, Year, and Place: Skin CA, removed in left side front head. Facial fracture/eye repair right side Infectious Disease History: No - Family History Known Family History: Positive: Cardiac Disease - Father at age 43 - Social History Occupation: Disabled Lives: Alone Alcohol Use: Daily Hx Substance Use: Yes Substance Use Type: Reports: Marijuana Hx Tobacco Use: Yes Smoking Status (MU): Current Every Day Smoker Type: Cigarettes Amount Used/How Often: 10 cigarettes/day Length of Time of Smoking/Using Tobacco: 50 years Review of Systems Constitutional: Negative Cardiovascular: Negative Positive: Shortness Of Breath, Cough Gastrointestinal: Negative Musculoskeletal: Negative Skin: Negative Psychological: Other - pos: SI Positive: Anxious, Depressed All Other Systems Reviewed And Are Negative: Yes Physical Exam - Summary Physical Exam Summary: Appearance: well-appearing, moderate pain distress, well-nourished Skin: Warm, color reflects adequate perfusion, dry Head: Normal Head/Face inspection, atraumatic Eyes: Conjunctiva clear, Aniscoria: 3 Left, 2 Right, pupils reactive to light, EOMI ENT: Normal inspection Neck: Supple, no nodes, no JVD Respiratory: Lungs clear, normal breath sounds, no respiratory distress Cardio: RRR, No murmur, pulses normal, brisk capillary refill Abdomen: Soft, nontender Bowel sounds: Present Musculoskeletal: Strength Intact/ROM intact, no calf tenderness, no edema. Psychological: states suicidal ideation, admits alcohol intoxication, states he' s going to run out of the ER to have a cigarette, asks for something to calm him down Neuro: Alert, muscle tone normal, no focal deficit, ambulatory, Motor 5/5, sensation intact to light touch, speech clear, facial symmetry Triage Information Reviewed: Yes Vital Signs Reviewed: Yes Diagnostics - Laboratory Result Diagrams: 04/05/18 17:35 04/05/18 17:35 Lab Statement: Any lab studies that have been ordered have been reviewed, and results considered in the medical decision making process. - EKG 1748 Cardiac Rate: NL - 91bpm EKG Rhythm: Sinus Rhythm ST Segment: Non-Specific Ectopy: None EKG Comparison: Other - ST segments are more flat in II, III and avF today. Summary of EKG Findings: An EKG at [address], nml QTc, and nml axis. Re-Evaluation - Re-Evaluation 1 Re-Evaluation Time: 18:20 Change: Worse Comment: Per nurse, pt is complaining of visual hallucinations. Will order Zyprexa, 5mg PO. 2 Re-Evaluation Time: 19:04 Change: Worse Comment: Pt is requesting another medication to calm himself. Will order another Geodon 20mg IM Third Eval Re-Evaluation Time: 20:30 Change: Improved Comment: lying on stretcher with eyes closed, rouses to tactile stimuli. Fourth Eval Re-Evaluation Time: 23:30 Change: Unchanged Comment: continues to lie on stretcher with eyes closed, rouses to stimuli. Course/Dx - Course Course Of Treatment: Pt is a 67 y/o M presenting with SI, anxiety, ETOH abuse, and SOB, cough. Pt was in [place] for past 1.5 years and returned to [place] on . Pt says he has been drinking and smoking all day, made suicidal statements to EMS. Pt requesting something to calm himself down, given Ativan 2mg po. Pt stated he is a flight risk upon admission to the ED. Pt [address] Ivy. Pt placed on arms reach 1:1 observation. 1819: pt states he is having visual hallucinations, given zyprexa 5mg po. 1913: Pt again requesting something to call him, given geodon 20mg IM. 2002: Pt changed to constant observation. Pt is resting quietly on stretcher. 23:50: Pt continues to rest on stretcher. Pt changed to q 15 minute safety monitor. Pt will be signed out to Dr. Izquierdo at shift change 23:55 pending medical clearance for MH after alcohol metabolism, and MHE. - Differential Dx/Clinical Impression Differential Diagnosis/HQI/PQRI: Positive: Acute Psychosis, Alcohol Intoxication , Anxiety, Bipolar Disorder, Depression, Suicidal Ideation Provider Diagnosis: Alcohol intoxication, Suicidal ideation, Tobacco abuse disorder, Hypertension, poor control Discharge - Sign-Out/Discharge Documenting (check all that apply): Sign-Out Patient Signing out patient TO: Yunior Izquierdo - pending sobriety, MHE 04/05/18 23:55 - Discharge Plan Referrals: Mckinley Meredith MD [Primary Care Provider] - - Attestation Statements Document Initiated by Scribe: Yes Documenting Scribe: aLura Lindsay Provider For Whom Pennie is Documenting (Include Credential): Dr. Alissa Ivy MD Scribe Attestation: Robert, Laura Lindsay, scribed for Dr. Alissa Ivy MD on 04/05/18 at 2358. Scribe Documentation Reviewed: Yes Provider Attestation: The documentation as recorded by the Laura logan accurately reflects the service I personally performed and the decisions made by me, Dr. Alissa Ivy MD
[2018-04-05] MEDS ORDERED: Mouth Piece, Nicotine* 1 EACH CARTRIDGE ONE (17:29)
[2018-04-05] MEDS ORDERED: Nicotine Inhaler* 10 MG AMP ONE (17:29)
[2018-04-05 17:46] LABS: ABS Basophils 0.1 10^3/ul (0-0.2); ABS Eosinophils 0.1 10^3/ul (0-0.6); ABS Lymphocytes 3.1 10^3/ul (1.0-4.8); ABS Monocytes 0.8 10^3/ul (0-0.8); ABS Neutrophils 6.6 10^3/ul (1.5-7.7); ABS Nucleated RBC 0 10^3/ul; Eosinophil % 1.1 % (0-6); Hematocrit 46 % (42-52); Hemoglobin 15.8 g/dl (14.0-18.0); Lymphocyte % 28.9 % (25-47); Mean Corpuscular HGB Conc 34 g/dl (31-36); Mean Corpuscular Hemoglobin 33 pg (27-31); Mean Corpuscular Volume 96 fL (80-94); Mean Platelet Volume 6.8 fL (7.4-10.4); Nucleated Red Blood Cells % 0.1; Platelet Count 302 10^3/ul (150-450); Red Blood Count 4.82 10^6/ul (4.00-5.40); Red Cell Distribution Width 13 % (10.5-15); White Blood Count 10.6 10^3/ul (3.5-10.8)
[2018-04-05 18:02] LABS: EGFR Non-African American 74.3 (>60)
[2018-04-05] MEDS ORDERED: OLANzapine TAB* 5 MG PO ONE ×2 (18:24→19:07)
[2018-04-05] MEDS ORDERED: Nicotine PATCH 21 MG/24 HR* PATCH TRANSDERM ONE (18:40)
[2018-04-05] MEDS ORDERED: Nicotine PATCH 21 MG/24 HR* PATCH ONE (18:43)
[2018-04-05] MEDS ORDERED: Ziprasidone IM INJ* 20 MG/ML VIAL ONE (19:06)
[2018-04-05] MEDS ORDERED: Sterile Water for Inj* 10 ML ONE (19:07)
[2018-04-05] MEDS ORDERED: Ziprasidone IM INJ* 20 MG/ML VIAL IM ONE (19:14)
[2018-04-05] MEDS ORDERED: Nicotine Patch Removal NOTE PATCH OFF SCH (21:00)
[2018-04-06 01:48] LABS: Urine Appearance Clear; Urine Blood 1+ (Negative); Urine Color Yellow; Urine Ketones Trace (Negative); Urine Protein Negative (Negative); Urine Red Blood Cell Trace(0-2/hpf) (Absent); Urine Specific Gravity 1.011 (1.010-1.030); Urine Urobilinogen Negative (Negative); Urine White Blood Cell Trace(0-5/hpf) (Absent)
--- NOTE | 2018-04-06 03:20 | ED ---
Progress - Progress Note Progress Note: Pt was signed out from Dr. Ivy to Dr. Izquierdo pending MHE. Per lens matcher the pt was suicidal 3 years ago. The pt will be on MH hold. As per Dr. Naidu, Dx: depression, SI. Pt will be signed out to Dr. Avendaño upon shift change pendning hold. - EKG/XRAY/CT XRAY: chest - negative. Pending official report. Re-Evaluation - Re-Evaluation First Eval Re-Evaluation Time: 03:00 Change: Unchanged Comment: Cleared for MHE Third Eval Re-Evaluation Time: 20:30 Change: Improved Comment: lying on stretcher with eyes closed, rouses to tactile stimuli. Fourth Eval Re-Evaluation Time: 23:30 Change: Unchanged Comment: continues to lie on stretcher with eyes closed, rouses to stimuli. 1 Re-Evaluation Time: 18:20 Change: Worse Comment: Per nurse, pt is complaining of visual hallucinations. Will order Zyprexa, 5mg PO. 2 Re-Evaluation Time: 19:04 Change: Worse Comment: Pt is requesting another medication to calm himself. Will order another Geodon 20mg IM Course/Dx - Course Course Of Treatment: Pt is a 67 y/o M presenting with SI, anxiety, ETOH abuse, and SOB, cough. Pt was signed out from Dr. Ivy to Dr. Izquierdo pending MHE. His CXR was negative. Per Dr. Naidu, Dx: SI, depression. Pt will be signed out to Dr. Avendaño at shift change pending hold. - Diagnoses Provider Diagnoses: Depression, Suicidal ideation Discharge - Sign-Out/Discharge Documenting (check all that apply): Sign-Out Patient Signing out patient TO: Erik Avendaño Receiving patient FROM: Alissa Ivy - Discharge Plan Referrals: Mckinley Meredith MD [Primary Care Provider] - - Attestation Statements Document Initiated by Scribe: Yes Documenting Scribe: Mj Arceo Provider For Whom Scribe is Documenting (Include Credential): Yunior Izquierdo MD Scribe Attestation: Mj Jones, scribed for Yunior Izquierdo MD on 04/06/18 at 0641.
--- NOTE | 2018-04-06 07:05 | ED ---
Progress - Progress Note Progress Note: Pt was signed out from Dr. Izquierdo to Dr. Avendaño pending hold. Per financial examiner the pt was suicidal 3 years ago. The pt will be on MH hold. As per Dr. Naidu, Dx: depression, SI. - EKG/XRAY/CT XRAY: chest - negative. Pending official report. - Consult/PCP Time Called: 03:20 Re-Evaluation - Re-Evaluation Third Eval Re-Evaluation Time: 20:30 Change: Improved Comment: lying on stretcher with eyes closed, rouses to tactile stimuli. Fourth Eval Re-Evaluation Time: 23:30 Change: Unchanged Comment: continues to lie on stretcher with eyes closed, rouses to stimuli. First Eval Re-Evaluation Time: 03:00 Change: Unchanged Comment: Cleared for MHE 1 Re-Evaluation Time: 18:20 Change: Worse Comment: Per nurse, pt is complaining of visual hallucinations. Will order Zyprexa, 5mg PO. 2 Re-Evaluation Time: 19:04 Change: Worse Comment: Pt is requesting another medication to calm himself. Will order another Geodon 20mg IM Fifth Eval Re-Evaluation Time: 08:35 Comment: The patient is complaining of sinus pressure of the right maxillary sinus. Pt is tachycardic and hypertensive, with 220 systolic. Pt reports that he has been binge drinking for the last 3 days and has a remote history of withdrawal. There is a possibility of withdrawal, or possible PE or PNA due to recent travel. Pt has wheezes and tremors. Sixth + Eval Re-Evaluation Time: 09:32 Change: Improved Comment: The [employer] is helping, patient feels better Course/Dx - Course Course Of Treatment: Pt is a 67 y/o M presenting with SI, anxiety, ETOH abuse, and SOB, cough. Pt was signed out from Dr. Izquierdo to Dr. Avendaño pending hold. His CXR was negative. Per Dr. Naidu, Dx: SI, depression. Pt is going to leave AMA. Patient will be discharged with a prescription for albuterol, chlordiazepoxide, and prednisone, and [facility] as [facility]. - Diagnoses Provider Diagnoses: Alcohol withdrawal, Alcohol-induced mood disorder, COPD exacerbation - Provider Notifications Discussed Care Of Patient With: Karla Murray Time Discussed With Above Provider: 09:30 Instructed by Provider To: Admit As Inpatient Discharge - Sign-Out/Discharge Documenting (check all that apply): Patient Departure - discharge Receiving patient FROM: Yunior [facility] - Discharge Plan Condition: Stable Disposition: AGAINST MEDICAL ADVICE Prescriptions: Albuterol HFA INHALER* [Ventolin HFA Inhaler*] 1 puff INH Q4H PRN #1 mdi PRN Reason: Cough chlordiazePOXIDE CAP* [Librium CAP*] 25 mg PO Q8H PRN #6 cap MDD 3 PRN Reason: Anxiety predniSONE TAB* [Deltasone 20 MG TAB*] 20 mg PO DAILY #4 tab Patient Education Materials: Mood Disorders (ED), COPD (Chronic Obstructive Pulmonary Disease) (ED), Alcohol Withdrawal (ED) Referrals: [facility] [Outside] Additional Instructions: Return to the emergency department for new or worsening symptoms. Follow up with the [facility] as soon as possible - Attestation Statements Document Initiated by Scribe: Yes Documenting Scribe: Dagoberto Hays Provider For Whom Scribe is Documenting (Include Credential): Erik Avendaño MD Scribe Attestation: Dagoberto Jones, scribed for Erik Avendaño MD on 04/06/18 at 1111.
[2018-04-06] MEDS ORDERED: NS 0.9% 1000 ML* 1,000 ML IV ONE (08:26)
[2018-04-06] MEDS ORDERED: Thiamine IV* 100 MG, Folic Acid IV* 1 MG, Multiple Vitamin IV ADULT* 10 ML in NS 0.9% 1... IV ONE (08:26)
[2018-04-06] MEDS ORDERED: methylPREDNISolone 125 MG* 2 ML VIAL IV ONE (08:35)
[2018-04-06] MEDS ORDERED: Albuterol/Ipratropium NEB.SOL* Albuterol 2.5 MG/Ipratropium 0.5 MG 3 ML INH ONE (08:35)
[2018-04-06] MEDS ORDERED: LORazepam INJ* 2 MG/ML 1 ML VIAL IV PUSH ONE (08:35)
[2018-04-06] MEDS ORDERED: Iodixanol* (CONTRAST) 320 MG/ML 100 ML SDV IV ONE (08:39)
[2018-04-06] MEDS ORDERED: NS 0.9% 1000 ML* 2,000 ML IV ONE (09:03)
[2018-04-06 11:24] VITALS: BP 165/105
--- NOTE | 2018-04-06 22:20 | CONS ---
CC: Dr. Meredith * CONSULTATION REPORT: DATE OF CONSULTATION: 04/06/18 - EMERGENCY DEPT PRIMARY CARE PROVIDER: Dr. Meredith. CHIEF COMPLAINT: Shortness of breath and suicidal ideation. HISTORY OF PRESENT ILLNESS: Mr. Schmidt is a 67-year-old male who states last evening he was drinking quite heavily when he suddenly began to feel short of breath. He reportedly called EMS because of the shortness of breath. He does not recall stating that he was suicidal; however, reportedly he did state that he wanted to kill himself. The patient was held in the emergency room overnight and ultimately evaluated by the mental health sawsmith and felt to be safe for discharge home from suicidal ideation standpoint. I was contacted by the ER provider who has concerns for possible COPD exacerbation and alcohol withdrawal and was asked to evaluate the patient for admission. Upon my arrival to the patient's room, he stated that he felt quite well. He also indicated that he did not want to be admitted to the hospital. The patient states his breathing essentially feels back to baseline at this point. We did discuss the fact that he had received a nebulizer treatment in the emergency room and that this likely made his breathing improved. Additionally, we discussed that his heart rate was mildly elevated and his blood pressure was mildly elevated as well. I told him that this could indicate that he was in mild alcohol withdrawal. The patient, however, did not appear to be in florid withdrawal. He had no shakes. He did, however, receive Ativan in the emergency room. The patient states that he does not feel like he is in any withdrawal. He states again that he would like to go home. The patient does report drinking approximately 1500 mL of vodka over the last 4 years as well as 1500 mL of Baileys Nadege Cream over the last 4 days. He states that he tends to binge drink. He will suddenly decide that he wants to stop drinking and not drink for a period of time and then will begin to binge drink again. PAST MEDICAL HISTORY: 1. Alcoholism. 2. PTSD. 3. Type 2 diabetes. 4. Chronic pancreatitis. 5. Anxiety. 6. History of peptic ulcer disease. PAST SURGICAL HISTORY: 1. Laparoscopic surgical evaluation of pancreatitis. 2. Tonsillectomy. 3. Vasectomy and vasectomy reversal. MEDICATIONS: 1. Lantus 30 units subcutaneous q.h.s. 2. NovoLog 8 to 12 units with meals. ALLERGIES: No known drug allergies. FAMILY HISTORY: Mom is living, she is 91, has dementia. Dad in his 40s of an [place]. SOCIAL HISTORY: The patient is an ex-smoker, currently approximately one-third of a pack per day, but has smoked more and has been smoking for the last 50 years. He binge drinks as above. 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 He is . His lives in [place] and he will be returning to be living with her in the near future, but did just fly home to help his mom, build on in addition to his sister's house for her to live in. He has 2 children. He indicates that his would be his first healthcare proxy and his sister, Mara, would be his second. REVIEW OF SYSTEMS: The patient denies any fevers, chills, or anorexia though he does state his appetite has generally been poor for quite sometime. He states that he has been having some cough with whitish to clear sputum. Occasionally, there are some streaks of blood in it. He does state that he had some chest discomfort yesterday. He vomited once yesterday morning. He has no abdominal pain. No diarrhea. No hematochezia. No hematuria. No dysuria. No focal weakness or sensory loss. No sudden change in vision. No dysphagia. No joint pains or muscle pains out of the ordinary. No rashes. No anxiety or depression. PHYSICAL EXAM: Blood pressure 173/89, pulse 118, respirations 18, temp 98.5, O2 sat 99% on room air. General: The patient is a well-developed, elderly- appearing male sitting in stretcher, in no acute distress. HEENT: Pupils equal and round. Extraocular muscles are intact. Oropharynx is clear. Oral mucosa is moist. There is no submandibular, cervical, or supraclavicular adenopathy. Cardiac: Normal S1 and S2. Heart rate is mildly tachycardic. There are no murmurs. There is no lower extremity edema. Pulmonary: Lungs are clear to auscultation bilaterally. Abdomen: Bowel sounds are present. Abdomen is soft, nontender, nondistended. Musculoskeletal: There is no cyanosis or clubbing at the digits. There is full active range of motion of all 4 extremities. Skin is warm and dry. There are no rashes. Neuro: The patient is alert and oriented x3. Sensation is intact to light touch throughout. There are no focal neurologic deficits. There is no tremulous noted. Psych: The patient is alert. He is oriented x3. Affect appears appropriate. DIAGNOSTIC STUDIES/LAB DATA: WBC 10.6, hemoglobin 15.8, hematocrit 46, platelets 302. Sodium 134, potassium 3.7, chloride 98, CO2 23. BUN 13, creatinine 1.0. Glucose 350. Calcium 9.8. Bilirubin 0.3. AST 26, ALT 19, alk phos 83. CPK 581. Albumin 4.4. TSH 1.95. Urinalysis reveals trace ketones, 1+ blood, 1+ bacteria. Serum alcohol level from 1735 on 04/05/18 when he initially presented to the emergency room is elevated at 301. ASSESSMENT AND PLAN: Mr. Schmidt is a 67-year-old male with history of alcoholism as well as type 2 diabetes and probable hypertension, who presents to the emergency room with complaints of shortness of breath and suicidal ideation which he now does not recall, requests to be discharged to home as apposed admitted for mild alcohol withdrawal and mild chronic obstructive pulmonary disease exacerbation. At this point, the patient does have capacity to make the decision to leave the hospital against medical advice. He remains tachycardic and hypertensive. The patient has been instructed to follow up with his primary care provider. In terms of the shortness of breath, it is possible that the patient has bronchitis. Albuterol inhaler and antibiotic has been recommended to the emergency room provider to discharge the patient home on. The patient has been instructed that he should return to the emergency room for any new or worsening symptoms. The patient again was evaluated by the mental health sawsmith and felt to be safe from a mental health standpoint for discharge. TIME SPENT: 65 minutes were spent on this consultation. [id number]/[facility] #: [id number] LADARIUS
== END 2018-04-06 11:21 | disposition left against medical advice (07) ==
LOC: ED 17:14
DX: F10.239 Alcohol dependence with withdrawal, unspecified (principal); F10.94 Alcohol use, unspecified with alcohol-induced mood disorder; R45.851 Suicidal ideations; J44.1 Chronic obstructive pulmonary disease with (acute) exacerbation; I10 Essential (primary) hypertension; R06.02 Shortness of breath; F17.210 Nicotine dependence, cigarettes, uncomplicated; F43.10 Post-traumatic stress disorder, unspecified; E11.9 Type 2 diabetes mellitus without complications; K86.1 Other chronic pancreatitis; Z87.11 Personal history of peptic ulcer disease
CPT/HCPCS: 36415; 71045; 71275; 80053; 80307; 80320; 80329; 81003; 81015; 82550; 84443; 85025; 87086; 93005; 96372; 96374; 99285; A9270-GY; G0480; J2060; J2930; J3486; Q9967

== ENCOUNTER 2018-04-09 18:40 | Observation (INO) | payer OTHER ==
[2018-04-09] MEDS ORDERED: Aspirin 81 mg CHEW TAB* 81 MG TAB.CHEW PO ONE (18:53)
[2018-04-09 19:23] LABS: ABS Basophils 0.1 10^3/ul (0-0.2); ABS Eosinophils 0.1 10^3/ul (0-0.6); ABS Lymphocytes 2.1 10^3/ul (1.0-4.8); ABS Monocytes 0.8 10^3/ul (0-0.8); ABS Nucleated RBC 0 10^3/ul; Hematocrit 44 % (42-52); Hemoglobin 15.1 g/dl (14.0-18.0); Lymphocyte % 19.1 % (25-47); Mean Corpuscular HGB Conc 34 g/dl (31-36); Mean Corpuscular Hemoglobin 33 pg (27-31); Mean Corpuscular Volume 96 fL (80-94); Nucleated Red Blood Cells % 0; Platelet Count 289 10^3/ul (150-450); Red Cell Distribution Width 13 % (10.5-15); White Blood Count 11.1 10^3/ul (3.5-10.8)
[2018-04-09] MEDS ORDERED: LORazepam INJ* 2 MG/ML 1 ML VIAL IV PUSH ONE ×2 (19:27→21:56)
[2018-04-09 19:33] LABS: INR 0.92 (0.77-1.02)
[2018-04-09 19:41] LABS: EGFR Non-African American 96.1 (>60)
[2018-04-09] MEDS ORDERED: NS 0.9% 1000 ML* 1,000 ML IV ONE (19:52)
[2018-04-09] MEDS ORDERED: Potassium Chlor TAB* 20 MEQ TAB.ER PO ONE (21:25)
[2018-04-09] MEDS ORDERED: Thiamine IV* 100 MG, Folic Acid IV* 1 MG, Multiple Vitamin IV ADULT* 10 ML in NS 0.9% 1... IV ONE (21:34)
[2018-04-09] MEDS ORDERED: Magnesium Sulfate 2 GM IV* 2 GM/50 ML BAG IVPB ONE (21:34)
--- NOTE | 2018-04-09 21:37 | ED ---
HPI Chest Pain - HPI Summary HPI Summary: Patient complains of CP, SOB, anxiety starting this morning. CP described sternal to left-sided chest, no radiation, constant. SOB described as mild. Patient states history of severe anxiety, PSD. Patient denies regular EtOH, but is known to have chronic EtOH abuse. Patient states last drink this afternoon. Denies fever, cough, sore throat, N/V/D, abdominal pain, change in urine, change in BM. Medical history is chronic EtOH, DM, COPD, chronic pancreatitis, PUD. Denies prior cardiac history. States positive family history is father of OR at 48 years old. Patient was seen here for same symptoms of . CTA negative. Patient was admitted for observation but refused and wanted to go home. No home O2. No anti-coag. Denies taking medication for any condition other than insulin for diabetes. - History of Current Complaint Chief Complaint: EDChestPainROMI Time Seen by Provider: 04/09/18 18:50 Hx Obtained From: Patient Onset/Duration: Started Hours Ago Timing: Constant Initial Severity: Mild Current Severity: Mild Pain Intensity: 3 Pain Scale Used: 0-10 Numeric Chest Pain Location: Mid Sternal, Left Anterior Chest Pain Radiates: No Character: Tightness Aggravating Factor(s): Nothing Alleviating Factor(s): Nothing Associated Signs and Symptoms: Positive: Anxiety, Shortness of Breath - Additional Pertinent History Primary Care Physician: [id number] - Allergy/Home Medications Allergies/Adverse Reactions: Allergies Allergy/AdvReac Type Severity Reaction Status Date / Time codeine Allergy Intermediate GI Upset Verified 04/09/18 18:45 influenza virus vaccine, Allergy Unknown Verified 04/09/18 18:45 specific Reaction Details shrimp Allergy Severe Hives Uncoded 04/09/18 18:45 Home Medications: Home Medications Insulin Aspart [Novolog] 8 unit SUBCUT AC 04/09/18 [History Confirmed 04/09/18] Insulin GLARGINE(*) [Lantus(*)] 30 units SUBCUT BEDTIME 04/09/18 [History Confirmed 04/09/18] PMH/Surg Hx/FS Hx/Imm Hx Endocrine/Hematology History: Reports: Hx Diabetes Denies: Hx Anticoagulant Therapy, Hx Thyroid Disease Cardiovascular History: Reports: Hx Hypercholesterolemia, Hx Hypertension Denies: Hx Congestive Heart Failure, Hx Coronary Artery Disease, Hx Pacemaker /ICD Respiratory History: Reports: Hx Chronic Obstructive Pulmonary Disease (COPD), Other Respiratory Problems/Disorders - COPD Denies: Hx Asthma GI History: Reports: Hx Gastroesophageal Reflux Disease - GERD/PUD, Hx Gastrointestinal Bleed, Other GI Disorders - PANCREATITIS, gastritis Denies: Hx Ulcer Musculoskeletal History: Reports: Hx Arthritis, Hx Back Problems - CHRONIC Denies: Hx Bursitis, Hx Congenital Bone Abnormalities Sensory History: Reports: Hx Contacts or Glasses, Hx Vision Problem - s/p eye surgery, Hx Deafness - [place], Hx Hearing Aid, Hx Hearing Problem Opthamlomology History: Reports: Hx Contacts or Glasses, Hx Vision Problem - s/ p eye surgery Neurological History: Denies: Hx Dementia, Hx Seizures Psychiatric History: Reports: Hx Anxiety, Hx Depression, Hx Post Traumatic Stress Disorder - [place] Vet Denies: Hx Attention Deficit Hyperactivity Disorder, Hx Eating Disorder, Hx Panic Disorder, Hx Inpatient Treatment, Hx Schizophrenia, Hx Bipolar Disorder, Hx Suicide Attempt, Hx of Violent Episodes Against Others, Other Psychiatric Issues/Disorders - Cancer History Cancer Type, Location and Year: SKIN CANCER - Surgical History Surgery Procedure, Year, and Place: Skin CA, removed in left side front head. Facial fracture/eye repair right side Infectious Disease History: No Infectious Disease History: Denies: Traveled Outside the [place] in Last 30 Days - Family History Known Family History: Positive: Cardiac Disease - Father at age 43 - Social History Alcohol Use: Daily Alcohol Amount: States 750ml Vodka And 750ml Baileys daily Hx Substance Use: Yes Substance Use Type: Reports: Marijuana Substance Use Comment - Amount & Last Used: unknown Hx Tobacco Use: Yes Smoking Status (MU): Current Every Day Smoker Type: Cigarettes Amount Used/How Often: 10 cigarettes/day Length of Time of Smoking/Using Tobacco: 50 years Review of Systems Constitutional: Negative Eyes: Negative ENT: Negative Positive: Chest Pain Positive: Shortness Of Breath Gastrointestinal: Negative Genitourinary: Negative Musculoskeletal: Negative Skin: Negative Neurological: Negative Psychological: Normal All Other Systems Reviewed And Are Negative: Yes Physical Exam - Summary Physical Exam Summary: No evidence of EtOH withdrawal. No tremors, diaphoresis, N/V, hallucinations noted. Patient calm and appropriate. Cooperative. Triage Information Reviewed: Yes Vital Signs On Initial Exam: Initial Vitals Pulse Resp Pulse Ox 103 15 95 04/09/18 18:44 04/09/18 18:44 04/09/18 18:44 Vital Signs Reviewed: Yes Appearance: Positive: Well-Appearing Skin: Positive: Warm Head/Face: Positive: Normal Head/Face Inspection Eyes: Positive: Normal Neck: Positive: Supple Respiratory/Lung Sounds: Positive: Clear to Auscultation Cardiovascular: Positive: Normal Abdomen Description: Positive: Nontender Musculoskeletal: Positive: Normal Neurological: Positive: Normal Psychiatric: Positive: Normal AVPU Assessment: Alert - [place] Coma Scale Best Eye Response: 4 - Spontaneous Best Motor Response: 6 - Obeys Commands Best Verbal Response: 5 - Oriented Coma Scale Total: 15 Diagnostics - Vital Signs Vital Signs Temp Pulse Resp BP Pulse Ox 04/09/18 20:44 92 15 184/133 94 04/09/18 20:14 86 21 188/115 94 04/09/18 20:00 93 22 94 04/09/18 19:44 20 186/112 04/09/18 19:32 18 04/09/18 19:15 95 23 179/111 94 04/09/18 19:14 21 188/128 04/09/18 19:00 97 13 95 04/09/18 18:52 100 12 148/97 96 04/09/18 18:45 98 F 103 19 174/123 94 04/09/18 18:44 103 15 95 - Laboratory Lab Results: Lab Results 04/09/18 04/09/18 04/09/18 Range/Units 19:12 19:12 19:12 WBC 11.1 H (3.5-10.8) 10^3/ul RBC 4.60 (4.00-5.40) 10^6/ul Hgb 15.1 (14.0-18.0) g/dl Hct 44 (42-52) % MCV 96 H (80-94) fL MCH 33 H (27-31) pg MCHC 34 (31-36) g/dl RDW 13 (10.5-15) % Plt Count 289 (150-450) 10^3/ul MPV 7.0 L (7.4-10.4) fL Neut % (Auto) 72.3 (38-83) % Lymph % (Auto) 19.1 L (25-47) % Glenn % (Auto) 7.0 (0-7) % Eos % (Auto) 1.0 (0-6) % Baso % (Auto) 0.6 (0-2) % Absolute Neuts (auto) 8.0 H (1.5-7.7) 10^3/ul Absolute Lymphs (auto) 2.1 (1.0-4.8) 10^3/ul Absolute Monos (auto) 0.8 (0-0.8) 10^3/ul Absolute Eos (auto) 0.1 (0-0.6) 10^3/ul Absolute Basos (auto) 0.1 (0-0.2) 10^3/ul Absolute Nucleated RBC 0 10^3/ul Nucleated RBC % 0 INR (Anticoag Therapy) (0.77-1.02) Sodium 137 (135-145) mmol/L Potassium 3.2 L (3.5-5.0) mmol/L Chloride 99 L (101-111) mmol/L Carbon Dioxide 24 (22-32) mmol/L Anion Gap 14 H (2-11) mmol/L BUN 16 (6-24) mg/dL Creatinine 0.80 (0.67-1.17) mg/dL Est GFR ( Amer) 116.3 (>60) Est GFR (Non-Af Amer) 96.1 (>60) BUN/Creatinine Ratio 20.0 (8-20) Glucose 229 H (70-100) mg/dL Lactic Acid 3.5 H* (0.5-2.0) mmol/L Calcium 8.7 (8.6-10.3) mg/dL Total Bilirubin 0.50 (0.2-1.0) mg/dL AST 19 (13-39) U/L ALT 18 (7-52) U/L Alkaline Phosphatase 80 (34-104) U/L Troponin I 0.01 (<0.04) ng/mL B-Natriuretic Peptide (<=100) pg/mL Total Protein 6.8 (6.4-8.9) g/dL Albumin 3.9 (3.2-5.2) g/dL Globulin 2.9 (2-4) g/dL Albumin/Globulin Ratio 1.3 (1-3) Lipase 12 (11.0-82.0) U/L TSH 1.57 (0.34-5.60) mcIU/mL Serum Alcohol (<10) mg/dL Influenza A (Rapid) (Negative) Influenza B (Rapid) (Negative) Group A Strep Rapid (Negative) 04/09/18 04/09/18 04/09/18 Range/Units 19:12 19:12 19:12 WBC (3.5-10.8) 10^3/ul RBC (4.00-5.40) 10^6/ul Hgb (14.0-18.0) g/dl Hct (42-52) % MCV (80-94) fL MCH (27-31) pg MCHC (31-36) g/dl RDW (10.5-15) % Plt Count (150-450) 10^3/ul MPV (7.4-10.4) fL Neut % (Auto) (38-83) % Lymph % (Auto) (25-47) % Glenn % (Auto) (0-7) % Eos % (Auto) (0-6) % Baso % (Auto) (0-2) % Absolute Neuts (auto) (1.5-7.7) 10^3/ul Absolute Lymphs (auto) (1.0-4.8) 10^3/ul Absolute Monos (auto) (0-0.8) 10^3/ul Absolute Eos (auto) (0-0.6) 10^3/ul Absolute Basos (auto) (0-0.2) 10^3/ul Absolute Nucleated RBC 10^3/ul Nucleated RBC % INR (Anticoag Therapy) 0.92 (0.77-1.02) Sodium (135-145) mmol/L Potassium (3.5-5.0) mmol/L Chloride (101-111) mmol/L Carbon Dioxide (22-32) mmol/L Anion Gap (2-11) mmol/L BUN (6-24) mg/dL Creatinine (0.67-1.17) mg/dL Est GFR ( Amer) (>60) Est GFR (Non-Af Amer) (>60) BUN/Creatinine Ratio (8-20) Glucose (70-100) mg/dL Lactic Acid (0.5-2.0) mmol/L Calcium (8.6-10.3) mg/dL Total Bilirubin (0.2-1.0) mg/dL AST (13-39) U/L ALT (7-52) U/L Alkaline Phosphatase (34-104) U/L Troponin I (<0.04) ng/mL B-Natriuretic Peptide 19 (<=100) pg/mL Total Protein (6.4-8.9) g/dL Albumin (3.2-5.2) g/dL Globulin (2-4) g/dL Albumin/Globulin Ratio (1-3) Lipase (11.0-82.0) U/L TSH (0.34-5.60) mcIU/mL Serum Alcohol 117 H (<10) mg/dL Influenza A (Rapid) (Negative) Influenza B (Rapid) (Negative) Group A Strep Rapid (Negative) 04/09/18 04/09/18 Range/Units 20:22 20:23 WBC (3.5-10.8) 10^3/ul RBC (4.00-5.40) 10^6/ul Hgb (14.0-18.0) g/dl Hct (42-52) % MCV (80-94) fL MCH (27-31) pg MCHC (31-36) g/dl RDW (10.5-15) % Plt Count (150-450) 10^3/ul MPV (7.4-10.4) fL Neut % (Auto) (38-83) % Lymph % (Auto) (25-47) % Glenn % (Auto) (0-7) % Eos % (Auto) (0-6) % Baso % (Auto) (0-2) % Absolute Neuts (auto) (1.5-7.7) 10^3/ul Absolute Lymphs (auto) (1.0-4.8) 10^3/ul Absolute Monos (auto) (0-0.8) 10^3/ul Absolute Eos (auto) (0-0.6) 10^3/ul Absolute Basos (auto) (0-0.2) 10^3/ul Absolute Nucleated RBC 10^3/ul Nucleated RBC % INR (Anticoag Therapy) (0.77-1.02) Sodium (135-145) mmol/L Potassium (3.5-5.0) mmol/L Chloride (101-111) mmol/L Carbon Dioxide (22-32) mmol/L Anion Gap (2-11) mmol/L BUN (6-24) mg/dL Creatinine (0.67-1.17) mg/dL Est GFR ( Amer) (>60) Est GFR (Non-Af Amer) (>60) BUN/Creatinine Ratio (8-20) Glucose (70-100) mg/dL Lactic Acid (0.5-2.0) mmol/L Calcium (8.6-10.3) mg/dL Total Bilirubin (0.2-1.0) mg/dL AST (13-39) U/L ALT (7-52) U/L Alkaline Phosphatase (34-104) U/L Troponin I (<0.04) ng/mL B-Natriuretic Peptide (<=100) pg/mL Total Protein (6.4-8.9) g/dL Albumin (3.2-5.2) g/dL Globulin (2-4) g/dL Albumin/Globulin Ratio (1-3) Lipase (11.0-82.0) U/L TSH (0.34-5.60) mcIU/mL Serum Alcohol (<10) mg/dL Influenza A (Rapid) Negative (Negative) Influenza B (Rapid) Negative (Negative) Group A Strep Rapid Negative (Negative) Result Diagrams: 04/09/18 19:12 04/09/18 19:12 Lab Statement: Any lab studies that have been ordered have been reviewed, and results considered in the medical decision making process. Chest Pain Course/Dx - Course Course Of Treatment: Patient complains of CP, SOB, anxiety starting this morning. CP described sternal to left-sided chest, no radiation, constant. SOB described as mild. Patient states history of severe anxiety, PSD. Patient denies regular EtOH, but is known to have chronic EtOH abuse. Patient states last drink this afternoon. Denies fever, cough, sore throat, N/V/D, abdominal pain, change in urine, change in BM. Medical history is chronic EtOH, DM, COPD , chronic pancreatitis, PUD. Denies prior cardiac history. States positive family history is father of OR at 48 years old. Patient was seen here for same symptoms of . CTA negative. Patient was admitted for observation but refused and wanted to go home. No home O2. No anti-coag. Denies taking medication for any condition other than insulin for diabetes. Physical exam: No evidence of EtOH withdrawal. Specifically no evidence of tremors, hallucinations, diaphoresis, N/V. Patient denies headache. Patient calm, alert and oriented, speaking appropriately, cooperative. Persistently asked for nicotine patch and Ativan. Lactic 3.5. EtOH 117. Vital signs within normal limits except for elevated blood pressure. Troponin negative. EKG unremarkable. Chest x-ray unremarkable. Patient states symptoms resolved with Ativan. Patient given banana bag, magnesium, potassium, Ativan, aspirin. clonidine for blood pressure. Admitted for observation - Chest Pain Differential Diagnosis/HQI/PQRI: ACS, Angina, Pulmonary Embolism - Diagnoses Provider Diagnoses: COPD (chronic obstructive pulmonary disease), Alcohol withdrawal, Elevated blood pressure reading Discharge - Sign-Out/Discharge Documenting (check all that apply): Patient Departure - Discharge Plan Condition: Stable Disposition: ADMITTED TO [facility] - Billing Disposition and Condition Condition: STABLE Disposition: Admitted to [facility]
[2018-04-09] MEDS ORDERED: Insulin REGULAR(*) 1 UNITS UNIT IV PUSH ONE (21:57)
[2018-04-09] MEDS ORDERED: cloNIDine TAB* 0.1 MG PO ONE (21:57)
[2018-04-09] MEDS ORDERED: LORazepam TAB(*) 1 MG PO PRN (22:59)
[2018-04-09] MEDS ORDERED: Nicotine PATCH 14 MG/24 HR* PATCH TRANSDERM ONE (22:59)
[2018-04-09] MEDS ORDERED: Nicotine Inhaler* 10 MG AMP INH PRN (22:59)
[2018-04-09] MEDS ORDERED: Azithromycin TAB* 250 MG PO ONE (22:59)
[2018-04-09] MEDS ORDERED: NS 0.9% 1000 ML* 1,000 ML IV SCH (23:00)
[2018-04-09] MEDS ORDERED: Albuterol 2.5 MG/3 ML NEB.SOL* (0.083%) INH PRN (23:06)
[2018-04-09] MEDS ORDERED: amLODIPine TAB* 5 MG PO ONE (23:13)
[2018-04-09] MEDS ORDERED: hydrALAZINE IV* 20 MG/ML VIAL IV SLOW PU PRN (23:18)
[2018-04-09] MEDS ORDERED: Dextrose 50% Syringe 50 ML* 25 GM/50 ML SYRINGE IV PUSH PRN (23:21)
[2018-04-10] MEDS ORDERED: Acetaminophen TAB* 325 MG PO PRN (03:31)
--- NOTE | 2018-04-10 03:36 | HP ---
CC: Dr. Meredith * HISTORY AND PHYSICAL: DATE OF ADMISSION: 04/09/18 PRIMARY CARE PROVIDER: Dr. Meredith. CHIEF COMPLAINT: Shortness of breath and chest pain. HISTORY OF PRESENT ILLNESS: Mr. Schmidt is a 67-year-old male whom I saw in the emergency room in consultation on 04/06/18 after spending approximately 16 hours in the ER. At that point, the patient presented to the emergency room intoxicated and stating that he was going to kill himself. When the patient sobered up, he stated that he does not even remember saying that he was going to kill himself. It was recommended that he stay in the hospital for evaluation of the complaints of shortness of breath and possible mild alcohol withdrawal. At that point, however, the patient declined admission to the hospital and was discharged against medical advice. The patient was prescribed prednisone and an albuterol inhaler; however, did not roll picker these medications. The patient at that time admitted to drinking approximately 3 L of alcohol over the previous 4 days. He states that he has subsequently gone back to [employer] and bought [employer] and was drinking that. He states that on the evening of this ER visit, he was drinking alone when he had an overwhelming sense of panic overtake him. He states that at that point he developed chest pain. He states that it is hard to take a breath due to a pressure- like sensation in his chest, and he therefore presented to the emergency room for evaluation. In further questioning about the chest pain, the patient states the chest pain has been present for quite some time now. He is a very vague historian and is unable to tell me when the chest pain began. He states that it has been constant, however. He currently feels much improved after presenting to the emergency room. He states that he has a history of panic attacks, but has not had them in quite some time; however, he feels he is under stress currently as his car has been in the shop. He is waiting for him siblings to give him money to work on in addition on a sister's house, so that his mom can stay there and is trying to lease out his house. His is currently in [place] and he anticipates returning to [place] at the beginning of April if all goes as planned. PAST MEDICAL HISTORY: 1. Alcoholism. 2. PTSD. 3. Type 2 diabetes. 4. Chronic pancreatitis. 5. Anxiety. 6. History of peptic ulcer disease. PAST SURGICAL HISTORY: 1. Laparoscopic surgical evaluation of pancreatitis. 2. Tonsillectomy. 3. Vasectomy and vasectomy reversal. MEDICATIONS: 1. Lantus 30 units subcutaneous q.h.s. 2. NovoLog 8 to 12 units subcu with meals. ALLERGIES: No known drug allergies. FAMILY HISTORY: Mom is living, she is 91 and has dementia. Dad in his 40s of an [place]. SOCIAL HISTORY: The patient currently smokes approximately one-third of a pack of cigarettes per day, but has smoked more in the past and has smoked for the last 50 years. He binge drinks. 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 He is , again his is currently in [place] and he will be returning to [place] at the beginning of April. He has 2 children. His is his first healthcare proxy and his sister, Mara, would be his second. REVIEW OF SYSTEMS: A complete 11-system review of systems is obtained. Pertinent positives and negatives are as per HPI and otherwise negative. PHYSICAL EXAMINATION GENERAL: The patient is a well-developed, middle-aged male, seen sitting up in the stretcher, in no acute distress. VITAL SIGNS: Blood pressure 172/105, pulse 85, respirations 16, temp 98, O2 sats 96% on 2 L. HEENT: Pupils are equal and round. Extraocular muscles are intact. Oropharynx is clear. Oral mucosa is moist. There is no submandibular, cervical , or supraclavicular adenopathy. Thyroid is not enlarged. No thyroid nodules noted. PULMONARY: Lungs are clear to auscultation bilaterally. CARDIAC: Normal S1, S2. There is regular rate and rhythm. I do not appreciate any murmurs. There is no lower extremity edema. ABDOMEN: Bowel sounds are present. Abdomen is soft, nontender, nondistended. MUSCULOSKELETAL: There is no cyanosis or clubbing of the digits. There is full active range of motion of all 4 extremities. NEURO: Cranial nerves II through XII are grossly intact. Sensation is intact to light touch throughout. Strength is 5/5 and symmetric to both upper and lower extremities bilaterally. PSYCH: The patient is alert. He is oriented x3. Affect appears appropriate. SKIN: Warm and dry. There are no rashes. LABORATORY DATA/DIAGNOSTIC STUDIES: Labs, WBC 11.1, hemoglobin 15.1, hematocrit 44, platelets 289. INR 0.92. Sodium 137, potassium 3.2, chloride 99 , CO2 24, BUN 16, creatinine 0.80, glucose 229. Lactic acid 3.5. Calcium 8.7, bilirubin 0.5, AST 19, ALT 18, alk phos 80. Troponin 0.01 x2. BNP 19. Albumin 3.9. Lipase 12. TSH 1.57. Serum alcohol 117. Influenza A and B negative. Group A strep negative. EKG revealed normal sinus rhythm without any acute ST-T wave abnormalities. Chest x-ray to my evaluation shows hyperinflation without any focal infiltrates. ASSESSMENT AND PLAN: Mr. Schmidt is a 67-year-old male who has a history of alcoholism who recently has been binge drinking who presents to the emergency room today with complaints of chest pain. 1. Chest pain. The patient believes that this is panic attack. The patient did respond very well to Ativan in the emergency room. He states that he essentially has complete resolution of his symptoms. He has never had a cardiac workup in the past. At this point, he will have a 3rd troponin obtained as well as repeat EKG. I do believe panic could be potential cause to his chest pain; however, he would be considered a higher risk for having coronary disease given his age, his smoking history, history of diabetes, and probable undiagnosed hypertension. The patient would benefit from having a stress test performed, though with the holiday tomorrow it is unclear if this can be done. I will order for tomorrow. Previously, when I saw the patient, there was concern for possible COPD exacerbation. At this point, the patient's breath sounds are quite clear. He has no wheezing on exam. Perhaps, his underlying disease could be contributing to his chest discomfort. 2. Leukocytosis. The patient has a mild leukocytosis of 11,100. During my previous evaluation of the patient, I was concerned for possible mild COPD exacerbation. The patient was not started on antibiotics. I will start the Z- Edwin. He will have albuterol nebulizer treatments available. 3. Accelerated hypertension. The patient has marked hypertension. He is asymptomatic and that he does not have headache though he does have chest pain. The patient received clonidine in the emergency room. In addition to the clonidine, I will start amlodipine 10 mg p.o. daily. He will have p.r.n. hydralazine. PILY inhibitor should be considered if his pressure does not come down with the above-mentioned treatments. 4. Lactic acidosis. I suspect this is secondary to the patient's drinking. He will receive normal saline and a repeat lactic acid will be obtained at approximately 1 a.m. on 04/10/18. 5. Type 2 diabetes. The patient utilizes Lantus and NovoLog at home. It is unclear how compliant the patient is with these medications. I will add on hemoglobin A1c to the labs obtained in the emergency room. For now, I will continue him on Lantus 30 units at bedtime. I will also place him on a lispro sliding scale for now. He will likely need a standing dose of short-acting insulin added back with meals. 6. DVT prophylaxis: According to the Adult Thrombosis Prophylaxis Risk Factor Assessment Guide, the patient has a total risk factor score of 2, making him moderate risk. Ambulation will be utilized as DVT prophylaxis. 7. Code status is full. TIME SPENT: 65 minutes was spent admitting this patient. [id number]/[facility] #: [id number] LADARIUS
[2018-04-10 04:55] LABS: Urine Appearance Clear; Urine Blood Negative (Negative); Urine Color Yellow; Urine Ketones Trace (Negative); Urine Protein Negative (Negative); Urine Specific Gravity 1.017 (1.010-1.030); Urine Urobilinogen Negative (Negative)
[2018-04-10 06:22] LABS: ABS Basophils 0 10^3/ul (0-0.2); ABS Eosinophils 0.2 10^3/ul (0-0.6); ABS Monocytes 0.6 10^3/ul (0-0.8); ABS Neutrophils 5.5 10^3/ul (1.5-7.7); ABS Nucleated RBC 0 10^3/ul; Eosinophil % 2.5 % (0-6); Hematocrit 39 % (42-52); Hemoglobin 13.6 g/dl (14.0-18.0); Mean Corpuscular HGB Conc 35 g/dl (31-36); Mean Corpuscular Hemoglobin 33 pg (27-31); Mean Corpuscular Volume 95 fL (80-94); Mean Platelet Volume 7.2 fL (7.4-10.4); Nucleated Red Blood Cells % 0.2; Platelet Count 222 10^3/ul (150-450); Red Blood Count 4.12 10^6/ul (4.00-5.40); Red Cell Distribution Width 13 % (10.5-15); White Blood Count 8.3 10^3/ul (3.5-10.8)
[2018-04-10 07:23] VITALS: BP 139/76
[2018-04-10] MEDS ORDERED: Insulin LISPRO* 1 UNITS UNIT SUBCUT SCH (07:30)
[2018-04-10] MEDS ORDERED: amLODIPine TAB* 5 MG PO SCH (09:00)
[2018-04-10] MEDS ORDERED: LORazepam TAB(*) 1 MG PO ONE ×2 (10:00→10:59)
[2018-04-10] MEDS ORDERED: Potassium Chlor TAB* 20 MEQ TAB.ER PO ONE (11:09)
[2018-04-10] MEDS ORDERED: Insulin GLARGINE(*) 1 UNITS UNIT SUBCUT SCH (21:00)
[2018-04-10] MEDS ORDERED: Azithromycin TAB* 250 MG PO SCH (21:00)
--- NOTE | 2018-04-11 01:49 | DS ---
CC: Dr. Meredith * DISCHARGE SUMMARY: DATE OF ADMISSION: 04/09/18 DATE OF DISCHARGE: 04/10/18 PRIMARY CARE PROVIDER: Dr. Meredith at the [facility]. MY ATTENDING FOR TODAY: Александр Rowe MD * (DICTATED BY ZACHARY ZHANG NP) HOSPITAL COURSE: This is a 67-year-old male patient who has had several visits to the emergency room. Most recently, he came to the ED on 04/06/18 and spent approximately 16 hours in the ED. He was intoxicated at that time and making statements of hurting himself. The patient after he sobered up stated he did not remember any of it and he did leave against medical advice. The patient declined admission when it was recommended to him. He was also having some COPD exacerbation. Medications were sent, which he did not picker/puller. He returned back to the emergency department yesterday with similar complaints. He was vague about his history and whether he was managing his medical needs at home, but apparently it does look like there were some compliance issues and the patient agreed to be admitted for complaints of abdominal and chest pressure. The patient agreed to stay for a nuclear stress test. The patient underwent an examination this morning, which revealed a low-risk examination. The patient continued to become agitated, although his VAM scores were less than 6. He was still threatening to leave against medical advice again. After some verbal de-escalation, the patient agreed to wait to be discharged while case management follows up on his insurance to get him to come to the [facility]. The patient normally treats at the [facility] only; however, I feel he will not be lost to followup if we do not get him in to the [facility] at least, to monitor status in the next couple of days. Case management is currently working on that process. Again, the patient is trying to leave against medical advice. Again, I agreed to discharge him based on his low risk stress test. DISCHARGE DIAGNOSES: 1. Chest and abdominal pressure likely related to post-traumatic stress disorder and panic attacks. 2. History of alcoholism. 3. History of post-traumatic stress disorder. 4. Insulin-dependent diabetes mellitus. 5. Chronic pancreatitis. 6. History of peptic ulcer disease. 7. Acute bronchitis. 8. History of tobacco abuse. DISCHARGE MEDICATIONS: Include: 1. Albuterol inhaler 1 puff q.4 hours as needed. 2. Azithromycin 250 mg daily for 6 days. 3. Lorazepam 1 mg p.o. b.i.d. as needed for anxiety, limit 10 tablets. 4. Amlodipine 10 mg p.o. daily. 5. NovoLog 8 units subcu before meals. 6. Lantus 30 units subcu at bedtime. REVIEW OF SYSTEMS: A 10-point review of systems was negative except as noted in the HPI above. PHYSICAL EXAMINATION: The patient is alert, obviously anxious and in some distress. Vital Signs: Blood pressure 139/76, heart rate 80, respiratory rate 20, O2 saturation 96% on room air with temperature 97.5. HEENT: The patient is atraumatic, normocephalic. PERRLA with nonicteric sclerae. Oral mucosa is moist. Tongue is midline. Neck is supple, nontender. No JVD noted. No carotid bruits auscultated. Cardiovascular: S1, S2 present. Rate and rhythm are regular. No murmurs, gallops or rubs present. Lungs are clear bilaterally at the apices. He has bilateral expiratory wheeze. No rales or rhonchi noted. Abdomen is soft, nontender, nondistended. Positive bowel sounds in all 4 quadrants. is deferred. Musculoskeletal: There is no clubbing, no cyanosis. No edema. He has +2 distal pulses palpable. He is ambulatory with a steady gait. Gross motor and sensation intact. Neurologic: Grossly intact. No focality. Psychiatric: He is obviously anxious, but is responding to verbal de-escalation and is currently appropriate. DIAGNOSTIC STUDIES/LAB DATA: WBC is 8.3, RBC is 4.12, hemoglobin 13.6, hematocrit 39, platelets 222,000. Sodium 136, potassium 3.4, chloride 103, CO2 of 25, BUN 14, creatinine 0.69, GFR 114, glucose 190, hemoglobin A1c is 8.5, calcium 7.8. Troponins are negative at 0.01 and 0.01. Stress test as noted above reveals a low risk examination. Chest x-ray dated 04/09/18, shows no evidence of acute disease. DISPOSITION: The patient will be discharged to home with outpatient followup. He can have a consistent carb heart healthy diet. Activity as tolerated. He was encouraged to cease tobacco abuse and cease all alcohol. The patient has low motivation for cessation in either of these addictions. The patient was told to follow up with Dr. Meredith at [facility] as soon as he can get an appointment. In the meantime, we are checking on insurance authorization for the patient to attend the [facility] here in the hospital and see either Dr. Powers or Dr. Riddle for closer followup. The patient was discharged in stable condition. Medications were sent to [facility]. Again, the patient was discharged in stable condition. All questions were answered. The patient stated understanding of his discharge instructions, medications, and followups. ZACHARY ZHANG NP [id number]/[facility] #: [id number] LADARIUS
== END 2018-04-10 11:40 | disposition home or self-care (01) ==
LOC: ED 18:40 → MEDTELE 22:59
PROVIDERS: ADMIT Hospitalist; ATTEND Student in an Organized Health Care Education/Training Program
DX: R07.9 Chest pain, unspecified (principal); F10.20 Alcohol dependence, uncomplicated; R06.02 Shortness of breath; J44.9 Chronic obstructive pulmonary disease, unspecified; F17.210 Nicotine dependence, cigarettes, uncomplicated; F43.10 Post-traumatic stress disorder, unspecified; E11.9 Type 2 diabetes mellitus without complications; Z79.4 Long term (current) use of insulin; K86.1 Other chronic pancreatitis; F41.0 Panic disorder [episodic paroxysmal anxiety]; J40 Bronchitis, not specified as acute or chronic; Z87.898 Personal history of other specified conditions; Z85.820 Personal history of malignant melanoma of skin; K27.9 Peptic ulcer, site unspecified, unspecified as acute or chronic, without hemorrhage or perforation
CPT/HCPCS: 36415; 71045; 78452; 80048; 80053; 80320; 81003; 83036; 83605; 83690; 83880; 84443; 84484; 85025; 85610; 87651; 93005; 93017; 96374; 96375; 96376; 99285; A9270-GY; A9502; G0378; G0480; J2060; J3411; J3475

== ENCOUNTER 2018-04-12 22:43 | Emergency (ER) | payer OTHER ==
[2018-04-12 23:57] LABS: ABS Basophils 0.1 10^3/ul (0-0.2); ABS Eosinophils 0 10^3/ul (0-0.6); ABS Lymphocytes 1.6 10^3/ul (1.0-4.8); ABS Monocytes 0.9 10^3/ul (0-0.8); ABS Neutrophils 10.8 10^3/ul (1.5-7.7); ABS Nucleated RBC 0 10^3/ul; Eosinophil % 0.2 % (0-6); Hematocrit 40 % (42-52); Lymphocyte % 11.9 % (25-47); Mean Corpuscular HGB Conc 35 g/dl (31-36); Mean Corpuscular Hemoglobin 33 pg (27-31); Mean Corpuscular Volume 95 fL (80-94); Mean Platelet Volume 7.2 fL (7.4-10.4); Nucleated Red Blood Cells % 0.1; Platelet Count 258 10^3/ul (150-450); Red Blood Count 4.24 10^6/ul (4.00-5.40); Red Cell Distribution Width 13 % (10.5-15); White Blood Count 13.4 10^3/ul (3.5-10.8)
[2018-04-13 00:16] LABS: EGFR Non-African American 110.3 (>60)
[2018-04-13] MEDS ORDERED: NS 0.9% 1000 ML* 1,000 ML IV ONE (00:30)
[2018-04-13] MEDS ORDERED: hydrOXYzine HCL TAB* 25 MG PO ONE ×2 (00:33→03:41)
[2018-04-13 00:55] LABS: Urine Appearance Clear; Urine Blood 2+ (Negative); Urine Color Yellow; Urine Ketones 2+ (Negative); Urine Protein Negative (Negative); Urine Red Blood Cell Trace(0-2/hpf) (Absent); Urine Specific Gravity 1.014 (1.010-1.030); Urine Urobilinogen Negative (Negative); Urine White Blood Cell Absent (Absent)
[2018-04-13] MEDS ORDERED: LORazepam INJ* 2 MG/ML 1 ML VIAL IV ONE (01:21)
[2018-04-13] MEDS ORDERED: Nicotine PATCH 14 MG/24 HR* PATCH TRANSDERM ONE (01:32)
[2018-04-13 03:01] LABS: ABS Basophils 0 10^3/ul (0-0.2); ABS Eosinophils 0.1 10^3/ul (0-0.6); ABS Lymphocytes 2.1 10^3/ul (1.0-4.8); ABS Monocytes 0.8 10^3/ul (0-0.8); ABS Neutrophils 7.7 10^3/ul (1.5-7.7); ABS Nucleated RBC 0 10^3/ul; Eosinophil % 0.7 % (0-6); Hematocrit 39 % (42-52); Hemoglobin 13.7 g/dl (14.0-18.0); Lymphocyte % 19.5 % (25-47); Mean Corpuscular HGB Conc 35 g/dl (31-36); Mean Corpuscular Hemoglobin 33 pg (27-31); Mean Corpuscular Volume 95 fL (80-94); Mean Platelet Volume 7.3 fL (7.4-10.4); Nucleated Red Blood Cells % 0.1; Platelet Count 241 10^3/ul (150-450); Red Blood Count 4.14 10^6/ul (4.00-5.40); Red Cell Distribution Width 13 % (10.5-15); White Blood Count 10.6 10^3/ul (3.5-10.8)
--- NOTE | 2018-04-13 03:10 | ED ---
Psychiatric Complaint - HPI Summary HPI Summary: Patient with history of chronic EtOH of multiple visits to this ED complains of anxiety attack with associated lightheadedness, CP, SOB, N/V. Denies fever, cough, sore throat, diarrhea, abdominal pain, change in urine, change in BM, hallucinations, BLANC, diaphoresis, tremors. Patient has recent admission 04/09 with subsequent negative stress test. states same symptoms as last visit. States symptoms are all consistent with his anxiety attacks. History of PTSD, anxiety, DM 2, HTN, COPD... Positive smoker. Chronic EtOH. Patient states last drink was this morning. Denies occasional drug use. Denies SI, HI - History Of Current Complaint Chief Complaint: EDGeneral Time Seen by Provider: 04/12/18 23:27 Hx Obtained From: Patient Onset/Duration: Gradual Onset Timing: Constant Severity Initially: Moderate Severity Currently: Moderate Character: Anxious Aggravating Factor(s): Nothing Alleviating Factor(s): Nothing Associated Signs And Symptoms: Positive: Negative - Allergies/Home Medications Allergies/Adverse Reactions: Allergies Allergy/AdvReac Type Severity Reaction Status Date / Time codeine Allergy Intermediate GI Upset Verified 04/09/18 18:45 influenza virus vaccine, Allergy Unknown Verified 04/09/18 18:45 specific Reaction Details shrimp Allergy Severe Hives Uncoded 04/09/18 18:45 PMH/Surg Hx/FS Hx/Imm Hx Endocrine/Hematology History: Reports: Hx Diabetes Denies: Hx Anticoagulant Therapy, Hx Thyroid Disease Cardiovascular History: Reports: Hx Angina, Hx Hypercholesterolemia, Hx Hypertension Denies: Hx Congestive Heart Failure, Hx Coronary Artery Disease, Hx Pacemaker /ICD Respiratory History: Reports: Hx Chronic Obstructive Pulmonary Disease (COPD), Other Respiratory Problems/Disorders - COPD Denies: Hx Asthma GI History: Reports: Hx Gastroesophageal Reflux Disease - GERD/PUD, Hx Gastrointestinal Bleed, Other GI Disorders - PANCREATITIS, gastritis Denies: Hx Ulcer Musculoskeletal History: Reports: Hx Arthritis, Hx Back Problems - CHRONIC Denies: Hx Bursitis, Hx Congenital Bone Abnormalities Sensory History: Reports: Hx Contacts or Glasses, Hx Vision Problem - s/p eye surgery, Hx Deafness - [place], Hx Hearing Aid, Hx Hearing Problem Opthamlomology History: Reports: Hx Contacts or Glasses, Hx Vision Problem - s/ p eye surgery Neurological History: Denies: Hx Dementia, Hx Seizures Psychiatric History: Reports: Hx Anxiety, Hx Depression, Hx Panic Disorder, Hx Post Traumatic Stress Disorder - [place] [employer], Hx Inpatient Treatment - 30 days in [place] for drug and alcohol tx, Hx Substance Abuse Denies: Hx Attention Deficit Hyperactivity Disorder, Hx Eating Disorder, Hx Community Mental Health Tx, Hx Schizophrenia, Hx Bipolar Disorder, Hx Suicide Attempt, Hx of Violent Episodes Against Others, Other Psychiatric Issues/ Disorders - Cancer History Cancer Type, Location and Year: SKIN CANCER - Surgical History Surgery Procedure, Year, and Place: Skin CA, removed in left side front head. Facial fracture/eye repair right side - Immunization History Immunizations Up to Date: Unable to Obtain/Confirm Infectious Disease History: No Infectious Disease History: Denies: Traveled Outside the [place] in Last 30 Days - Family History Known Family History: Positive: Cardiac Disease - Father at age 43 - Social History Alcohol Use: Daily Alcohol Amount: States 750ml Vodka And 750ml Baileys daily. 04/12/18 "not very much today" Hx Substance Use: Yes Substance Use Type: Reports: Marijuana Substance Use Comment - Amount & Last Used: THC "rarely" Hx Tobacco Use: Yes Smoking Status (MU): Heavy Every Day Tobacco Smoker Type: Cigarettes Amount Used/How Often: 10 cigarettes/day Length of Time of Smoking/Using Tobacco: 50 years Have You Smoked in the Last Year: Yes Review of Systems Constitutional: Negative Eyes: Negative ENT: Negative Positive: Chest Pain Positive: Shortness Of Breath Positive: Vomiting, Nausea Genitourinary: Negative Musculoskeletal: Negative Skin: Negative Neurological: Negative Psychological: Normal All Other Systems Reviewed And Are Negative: Yes Physical Exam - Summary Physical Exam Summary: Patient speaking in complete sentences with no apparent distress. Telling stories about his son his childhood is living in [place]. Asks for Ativan 2 mg IV. An nicotine patch. Triage Information Reviewed: Yes Vital Signs On Initial Exam: Initial Vitals Temp Pulse Resp BP Pulse Ox 97.1 F 103 22 161/107 96 04/12/18 23:05 04/12/18 23:05 04/12/18 23:05 04/12/18 23:05 04/12/18 23:05 Vital Signs Reviewed: Yes Appearance: Positive: Well-Appearing Skin: Positive: Warm Head/Face: Positive: Normal Head/Face Inspection Eyes: Positive: Normal Neck: Positive: Supple Respiratory/Lung Sounds: Positive: Clear to Auscultation Cardiovascular: Positive: Normal Abdomen Description: Positive: Nontender Musculoskeletal: Positive: Normal Neurological: Positive: Normal Psychiatric: Positive: Normal AVPU Assessment: Alert - Steven Coma Scale Best Eye Response: 4 - Spontaneous Best Motor Response: 6 - Obeys Commands Best Verbal Response: 5 - Oriented Coma Scale Total: 15 Diagnostics - Vital Signs Vital Signs Temp Pulse Resp BP Pulse Ox 04/13/18 02:24 84 19 172/84 94 04/13/18 02:00 96 25 95 04/13/18 01:54 91 17 166/86 94 04/13/18 01:24 90 16 171/96 94 04/13/18 01:22 91 15 161/92 94 04/13/18 01:00 98 17 96 04/13/18 00:54 93 19 183/100 95 04/13/18 00:29 100 24 178/101 94 04/13/18 00:24 99 20 186/104 96 04/12/18 23:54 90 14 168/94 95 04/12/18 23:52 97 14 97 04/12/18 23:24 98 19 163/94 96 04/12/18 23:21 101 13 97 04/12/18 23:05 97.1 F 103 22 161/107 96 - Laboratory Lab Results: Lab Results 04/12/18 04/12/18 04/12/18 Range/Units 23:48 23:48 23:48 WBC 13.4 H (3.5-10.8) 10^3/ul RBC 4.24 (4.00-5.40) 10^6/ul Hgb 14.0 (14.0-18.0) g/dl Hct 40 L (42-52) % MCV 95 H (80-94) fL MCH 33 H (27-31) pg MCHC 35 (31-36) g/dl RDW 13 (10.5-15) % Plt Count 258 (150-450) 10^3/ul MPV 7.2 L (7.4-10.4) fL Neut % (Auto) 80.6 (38-83) % Lymph % (Auto) 11.9 L (25-47) % [place] % (Auto) 6.9 (0-7) % Eos % (Auto) 0.2 (0-6) % Baso % (Auto) 0.4 (0-2) % Absolute Neuts (auto) 10.8 H (1.5-7.7) 10^3/ul Absolute Lymphs (auto) 1.6 (1.0-4.8) 10^3/ul Absolute Monos (auto) 0.9 H (0-0.8) 10^3/ul Absolute Eos (auto) 0 (0-0.6) 10^3/ul Absolute Basos (auto) 0.1 (0-0.2) 10^3/ul Absolute Nucleated RBC 0 10^3/ul Nucleated RBC % 0.1 Sodium 133 L (135-145) mmol/L Potassium 3.6 (3.5-5.0) mmol/L Chloride 98 L (101-111) mmol/L Carbon Dioxide 18 L (22-32) mmol/L Anion Gap 17 H (2-11) mmol/L BUN 16 (6-24) mg/dL Creatinine 0.71 (0.67-1.17) mg/dL Est GFR ( Amer) 133.5 (>60) Est GFR (Non-Af Amer) 110.3 (>60) BUN/Creatinine Ratio 22.5 H (8-20) Glucose 155 H (70-100) mg/dL Lactic Acid 0.9 (0.5-2.0) mmol/L Calcium 9.3 (8.6-10.3) mg/dL Total Bilirubin 0.90 (0.2-1.0) mg/dL AST 27 (13-39) U/L ALT 19 (7-52) U/L Alkaline Phosphatase 71 (34-104) U/L C-Reactive Protein 17.09 H (<8.01) mg/L Total Protein 6.8 (6.4-8.9) g/dL Albumin 4.0 (3.2-5.2) g/dL Globulin 2.8 (2-4) g/dL Albumin/Globulin Ratio 1.4 (1-3) Lipase 17 (11.0-82.0) U/L Urine Color Urine Appearance Urine pH (5-9) Ur Specific [place] (1.010-1.030) Urine Protein (Negative) Urine Ketones (Negative) Urine Blood (Negative) Urine Nitrate (Negative) Urine Bilirubin (Negative) Urine Urobilinogen (Negative) Ur Leukocyte Esterase (Negative) Urine WBC (Auto) (Absent) Urine RBC (Auto) (Absent) Ur Squamous Epith Cells (Absent) Urine Bacteria (Absent) Urine Glucose (Negative) Serum Alcohol < 10 (<10) mg/dL 04/13/18 04/13/18 Range/Units 00:26 02:51 WBC 10.6 (3.5-10.8) 10^3/ul RBC 4.14 (4.00-5.40) 10^6/ul Hgb 13.7 L (14.0-18.0) g/dl Hct 39 L (42-52) % MCV 95 H (80-94) fL MCH 33 H (27-31) pg MCHC 35 (31-36) g/dl RDW 13 (10.5-15) % Plt Count 241 (150-450) 10^3/ul MPV 7.3 L (7.4-10.4) fL Neut % (Auto) 72.3 (38-83) % Lymph % (Auto) 19.5 L (25-47) % [place] % (Auto) 7.1 H (0-7) % Eos % (Auto) 0.7 (0-6) % Baso % (Auto) 0.4 (0-2) % Absolute Neuts (auto) 7.7 (1.5-7.7) 10^3/ul Absolute Lymphs (auto) 2.1 (1.0-4.8) 10^3/ul Absolute Monos (auto) 0.8 (0-0.8) 10^3/ul Absolute Eos (auto) 0.1 (0-0.6) 10^3/ul Absolute Basos (auto) 0 (0-0.2) 10^3/ul Absolute Nucleated RBC 0 10^3/ul Nucleated RBC % 0.1 Sodium (135-145) mmol/L Potassium (3.5-5.0) mmol/L Chloride (101-111) mmol/L Carbon Dioxide (22-32) mmol/L Anion Gap (2-11) mmol/L BUN (6-24) mg/dL Creatinine (0.67-1.17) mg/dL Est GFR ( Amer) (>60) Est GFR (Non-Af Amer) (>60) BUN/Creatinine Ratio (8-20) Glucose (70-100) mg/dL Lactic Acid (0.5-2.0) mmol/L Calcium (8.6-10.3) mg/dL Total Bilirubin (0.2-1.0) mg/dL AST (13-39) U/L ALT (7-52) U/L Alkaline Phosphatase (34-104) U/L C-Reactive Protein (<8.01) mg/L Total Protein (6.4-8.9) g/dL Albumin (3.2-5.2) g/dL Globulin (2-4) g/dL Albumin/Globulin Ratio (1-3) Lipase (11.0-82.0) U/L Urine Color Yellow Urine Appearance Clear Urine pH 5.0 (5-9) Ur Specific [place] 1.014 (1.010-1.030) Urine Protein Negative (Negative) Urine Ketones 2+ A (Negative) Urine Blood 2+ A (Negative) Urine Nitrate Negative (Negative) Urine Bilirubin Negative (Negative) Urine Urobilinogen Negative (Negative) Ur Leukocyte Esterase Negative (Negative) Urine WBC (Auto) Absent (Absent) Urine RBC (Auto) Trace(0-2/hpf) (Absent) Ur Squamous Epith Cells Present A (Absent) Urine Bacteria Absent (Absent) Urine Glucose 3+(>=500 mg/dl) A (Negative) Serum Alcohol (<10) mg/dL Result Diagrams: 04/13/18 02:51 04/13/18 02:53 Lab Statement: Any lab studies that have been ordered have been reviewed, and results considered in the medical decision making process. Course/Dx - Course Course Of Treatment: Patient with history of chronic EtOH of multiple visits to this ED complains of anxiety attack with associated lightheadedness, CP, SOB, N/ V. Denies fever, cough, sore throat, diarrhea, abdominal pain, change in urine , change in BM, hallucinations, BLANC, diaphoresis, tremors. Patient has recent admission 04/09 with subsequent negative stress test. states same symptoms as last visit. States symptoms are all consistent with his anxiety attacks. History of PTSD, anxiety, DM 2, HTN, COPD... Positive smoker. Chronic EtOH. Patient states last drink was this morning. Denies occasional drug use. Denies SI, HI. Physical exam:Patient speaking in complete sentences with no apparent distress. Telling stories about his son his childhood is living in [place]. Asks for Ativan 2 mg IV. An nicotine patch. Vital signs within normal limits. White count elevated from visit few days ago. Anion gap elevated versus prior visit. Labs otherwise unremarkable. Chest x-ray negative. Patient given 25 mg Vistaril by mouth. 1 L normal saline. Labs rechecked. Patient states symptoms resolved with Vistaril. No evidence of withdrawal noted. Repeat labs after 1 L of fluids have normal white count and anion gap of 12, down from 17. Patient discharged with Rx for Vistaril. - Differential Dx/Clinical Impression Provider Diagnosis: Anxiety Discharge - Sign-Out/Discharge Documenting (check all that apply): Patient Departure - Discharge Plan Condition: Stable Disposition: HOME Patient Education Materials: Anxiety (ED) Referrals: Mckinley Meredith MD [Primary Care Provider] - Additional Instructions: Follow-up with primary care. Return to ED for any new or worsening symptoms - Billing Disposition and Condition Condition: STABLE Disposition: Home
[2018-04-13 03:50] VITALS: BP 159/90
== END 2018-04-13 03:39 | disposition home or self-care (01) ==
LOC: ED 22:43
DX: R07.9 Chest pain, unspecified (principal); R06.02 Shortness of breath; R11.2 Nausea with vomiting, unspecified; F17.210 Nicotine dependence, cigarettes, uncomplicated
CPT/HCPCS: 36415; 71045; 80053; 80320; 81003; 81015; 83605; 83690; 85025; 86140; 93005; 96361; 96374; 99283; A9270-GY; G0480

== ENCOUNTER 2018-09-14 19:48 | Emergency (ER) | payer OTHER ==
[2018-09-14] MEDS ORDERED: LORazepam INJ* 2 MG/ML 1 ML VIAL IV PUSH ONE ×2 (20:28→21:08)
[2018-09-14] MEDS ORDERED: NS 0.9% 1000 ML** 1,000 ML IV ONE (20:28)
[2018-09-14] MEDS ORDERED: Lorazepam PYXIS KEY ONE ×2 (20:34→21:29)
--- NOTE | 2018-09-14 20:37 | ED ---
Respiratory - HPI Summary HPI Summary: This patient is a 68 year old M brought in by ambulance to [facility] with a chief complaint of difficulty breathing since 19:00. The patient also notes increased anxiety for the last few days. The patient notes that he has been living in [place] and came back 1 week ago to sell his house. The patient notes that he wants to but says that he does not want to do anything to hurt himself. The patient reports that he drank a lot of whiskey today to help with his anxiety. The patient rates the pain 7/10 in severity. Symptoms aggravated by nothing. Symptoms alleviated by nothing. Patient reports anxiety and chest discomfort. The patient notes he has not been eating well and he did not take any of his medications today. Patient denies HI or SI. The patient notes that he is a [place] with hx of PTSD, COPD, and DM. Patient smokes daily. Patient has previously been admitted to a psychiatric facility. - History of Current Complaint Chief Complaint: EDChestPainROMI Stated Complaint: ANXIETY PER EMS Hx Obtained From: Patient Onset/Duration: Gradual Onset, Lasting Hours, Still Present Initial Severity: Mild Current Severity: Mild Pain Intensity: 7 Character: Dyspnea at Rest Aggravating Factor(s): Nothing Alleviating Factor(s): Nothing Associated Signs and Symptoms: Dyspnea, Pleuritic Chest Pain - Allergy/Home Medications Allergies/Adverse Reactions: Allergies Allergy/AdvReac Type Severity Reaction Status Date / Time codeine Allergy Intermediate GI Upset Verified 04/09/18 18:45 influenza virus vaccine, Allergy Unknown Verified 04/09/18 18:45 specific Reaction Details shrimp Allergy Severe Hives Uncoded 04/09/18 18:45 PMH/Surg Hx/FS Hx/Imm Hx Endocrine/Hematology History: Reports: Hx Diabetes Denies: Hx Anticoagulant Therapy, Hx Thyroid Disease Cardiovascular History: Reports: Hx Angina, Hx Hypercholesterolemia, Hx Hypertension Denies: Hx Congestive Heart Failure, Hx Coronary Artery Disease, Hx Pacemaker /ICD Respiratory History: Reports: Hx Chronic Obstructive Pulmonary Disease (COPD), Other Respiratory Problems/Disorders - COPD Denies: Hx Asthma GI History: Reports: Hx Gastroesophageal Reflux Disease - GERD/PUD, Hx Gastrointestinal Bleed, Other GI Disorders - PANCREATITIS, gastritis Denies: Hx Ulcer Musculoskeletal History: Reports: Hx Arthritis, Hx Back Problems - CHRONIC Denies: Hx Bursitis, Hx Congenital Bone Abnormalities Sensory History: Reports: Hx Contacts or Glasses, Hx Vision Problem - s/p eye surgery, Hx Deafness - [place], Hx Hearing Aid, Hx Hearing Problem Opthamlomology History: Reports: Hx Contacts or Glasses, Hx Vision Problem - s/ p eye surgery Neurological History: Denies: Hx Dementia, Hx Seizures Psychiatric History: Reports: Hx Anxiety, Hx Depression, Hx Panic Disorder, Hx Post Traumatic Stress Disorder - [place] Vet, Hx Inpatient Treatment - 30 days in [place] for drug and alcohol tx, Hx Substance Abuse Denies: Hx Attention Deficit Hyperactivity Disorder, Hx Eating Disorder, Hx Community Mental Health Tx, Hx Schizophrenia, Hx Bipolar Disorder, Hx Suicide Attempt, Hx of Violent Episodes Against Others, Other Psychiatric Issues/ Disorders - Cancer History Cancer Type, Location and Year: SKIN CANCER - Surgical History Surgery Procedure, Year, and Place: Skin CA, removed in left side front head. Facial fracture/eye repair right side Infectious Disease History: No Infectious Disease History: Denies: Traveled Outside the US in Last 30 Days - Family History Known Family History: Positive: Cardiac Disease - Father at age 43 - Social History Alcohol Use: Occasionally Alcohol Amount: States he goes months without drinking and then binges Hx Substance Use: Yes Substance Use Type: Reports: Marijuana Substance Use Comment - Amount & Last Used: THC "rarely" Hx Tobacco Use: Yes Smoking Status (MU): Heavy Every Day Tobacco Smoker Type: Cigarettes Amount Used/How Often: 10 cigarettes/day Length of Time of Smoking/Using Tobacco: 50 years Have You Smoked in the Last Year: Yes Review of Systems Negative: Fever Negative: Epistaxis Positive: Chest Pain - chest discomfort Positive: Shortness Of Breath - dyspnsea Psychological: Other - no SI or HI Positive: Anxious All Other Systems Reviewed And Are Negative: Yes Physical Exam - Summary Physical Exam Summary: VITAL SIGNS: Reviewed. GENERAL: Patient is a well-developed and nourished MALE who is lying comfortable in the stretcher. Patient is not in any acute respiratory distress. HEAD AND FACE: No signs of trauma. No ecchymosis, hematomas or skull depressions. No sinus tenderness. EYES: PERRLA, EOMI x 2, No injected conjunctiva, no nystagmus. EARS: Hearing grossly intact. Ear canals and tympanic membranes are within normal limits. MOUTH: Oropharynx within normal limits. NECK: Supple, trachea is midline, no adenopathy, no JVD, no carotid bruit, no c- spine tenderness, neck with full ROM. CHEST: Symmetric, no tenderness at palpation LUNGS: Clear to auscultation bilaterally. No wheezing or crackles. CVS: Regular rate and rhythm, S1 and S2 present, no murmurs or gallops appreciated. ABDOMEN: Soft, non-tender. No signs of distention. No rebound no guarding, and no masses palpated. Bowel sounds are normal. EXTREMITIES: FROM in all major joints, no edema, no cyanosis or clubbing. NEURO: Alert and oriented x 3. No acute neurological deficits. Speech is normal and follows commands. SKIN: Dry and warm PSYCH: seems anxious Triage Information Reviewed: Yes Vital Signs On Initial Exam: Initial Vitals Temp Pulse Resp BP Pulse Ox 97.4 F 78 18 150/80 98 09/14/18 19:54 09/14/18 19:54 09/14/18 19:54 09/14/18 19:54 09/14/18 19:54 Vital Signs Reviewed: Yes Diagnostics - Vital Signs Vital Signs Temp Pulse Resp BP Pulse Ox 09/14/18 19:54 97.4 F 78 18 150/80 98 - Laboratory Result Diagrams: 09/14/18 20:37 09/14/18 20:37 Lab Statement: Any lab studies that have been ordered have been reviewed, and results considered in the medical decision making process. - Radiology CXR Radiology Interpretation Completed By: ED Physician - Dr. Izquierdo, pending official report Summary of Radiographic Findings: no acute process Disposition - Course Course Of Treatment: This patient is a 68 year old M with hx PTSD, COPD, and DM brought in by ambulance to [facility] with a chief complaint of difficulty breathing since 19:00. The patient notes increased anxiety for the last few days and that he drank a lot of whiskey today to help with his anxiety. The patient notes he has not been eating well and he did not take any of his medications today. Patient denies HI or SI CXR reveals, per ED physician, no acute process. UA and labs obtained. In the ED course the patient was given IV fluids and Ativan. We discussed patient care with Dr. Jo and they recommended discharging the patient home with dx substance abuse. Patient will be discharged home with follow up from PCP. The patient is agreeable with this plan. Dx substance abuse and anxiety. - Diagnoses Provider Diagnoses: Anxiety, Substance abuse Discharge - Sign-Out/Discharge Documenting (check all that apply): Patient Departure - discharge home Patient Received Moderate/Deep Sedation with Procedure: No - Discharge Plan Condition: Stable Disposition: HOME Patient Education Materials: Abuse of Alcohol (ED) Referrals: Mckinley Meredith MD [Primary Care Provider] - Additional Instructions: Please call to follow up with one of the following: Substance Abuse Treatment Programs [facility] [phone] Alcohol and Drug [facility] - Attestation Statements Document Initiated by Scribe: Yes Documenting Scribe: Charmaine Durbin Provider For Whom Scribe is Documenting (Include Credential): Yunior Izquierdo MD Scribe Attestation: Charmaine Jones, scribed for Yunior Izquierdo MD on 09/15/18 at 0429. Status of Scribe Document: Ready
[2018-09-14 20:43] LABS: ABS Basophils 0.1 10^3/ul (0-0.2); ABS Eosinophils 0.1 10^3/ul (0-0.6); ABS Lymphocytes 2.2 10^3/ul (1.0-4.8); ABS Monocytes 0.7 10^3/ul (0-0.8); ABS Neutrophils 2.8 10^3/ul (1.5-7.7); ABS Nucleated RBC 0 10^3/ul; Eosinophil % 2.3 %; Hematocrit 40 % (36-46); Hemoglobin 14.3 g/dL (14.0-18.0); Lymphocyte % 37.6 %; Mean Corpuscular HGB Conc 35 g/dL (31-36); Mean Corpuscular Hemoglobin 34 pg (27-31); Mean Corpuscular Volume 97 fL (80-94); Mean Platelet Volume 6.7 fL (7.4-10.4); Nucleated Red Blood Cells % 0; Platelet Count 356 10^3/uL (150-450); Red Blood Count 4.18 10^6 /uL (4.18-5.48); Red Cell Distribution Width 13 % (10.5-15); White Blood Count 5.9 10^3/uL (3.5-10.8)
[2018-09-14 20:59] LABS: ALT 19 U/L (7-52); AST 33 U/L (13-39); Albumin 4.1 g/dL (3.2-5.2); Albumin/Globulin Ratio 1.6 (1-3); Alkaline Phosphatase 59 U/L (34-104); Anion Gap 14 mmol/L (2-11); BUN/Creatinine Ratio 15.1 (8-20); Blood Urea Nitrogen 13 mg/dL (6-24); CO2 Carbon Dioxide 20 mmol/L (22-32); Calcium 8.9 mg/dL (8.6-10.3); Chloride 102 mmol/L (101-111); EGFR African American 106.7 (>60); EGFR Non-African American 88.2 (>60); Globulin 2.6 g/dL (2-4); Glucose 237 mg/dL (70-100); Potassium 3.8 mmol/L (3.5-5.0); Sodium 136 mmol/L (135-145); Total Protein 6.7 g/dL (6.4-8.9)
[2018-09-14 21:01] LABS: Troponin I 0.01 ng/mL (<0.04)
[2018-09-14 21:32] LABS: Acetaminophen < 15 mcg/mL; Alcohol 205 mg/dL (<10); Salicylate < 2.50 mg/dL (<30)
[2018-09-14 21:47] LABS: TSH (Thyroid Stimulating Horm) 2.36 mcIU/mL (0.34-5.60)
[2018-09-15 00:27] LABS: Urine Benzodiazepine Screen None Detected (None Detect); Urine Opiates Screen None Detected (None Detect)
[2018-09-15 00:44] LABS: Urine Appearance Clear; Urine Bilirubin Negative (Negative); Urine Blood Negative (Negative); Urine Color Yellow; Urine Glucose 2+(150 mg/dL) (Negative); Urine Ketones 1+ (Negative); Urine Nitrite Negative (Negative); Urine Protein Negative (Negative); Urine Urobilinogen Negative (Negative)
[2018-09-15 04:49] VITALS: BP 167/85
== END 2018-09-15 04:54 | disposition home or self-care (01) ==
LOC: ED 19:48
DX: F41.9 Anxiety disorder, unspecified (principal); F19.10 Other psychoactive substance abuse, uncomplicated; I10 Essential (primary) hypertension; E11.9 Type 2 diabetes mellitus without complications; E78.00 Pure hypercholesterolemia, unspecified; J44.9 Chronic obstructive pulmonary disease, unspecified; K21.9 Gastro-esophageal reflux disease without esophagitis; F17.210 Nicotine dependence, cigarettes, uncomplicated; F43.12 Post-traumatic stress disorder, chronic; Z88.5 Allergy status to narcotic agent; Z88.7 Allergy status to serum and vaccine; Z85.828 Personal history of other malignant neoplasm of skin
CPT/HCPCS: 36415; 71045; 80053; 80307; 80320; 80329; 81003; 84443; 84484; 85025; 96361; 96374; 96376; 99285; G0480; J2060

== ENCOUNTER 2018-09-17 13:56 | Emergency (ER) | payer OTHER ==
[2018-09-17] MEDS ORDERED: LORazepam INJ* 2 MG/ML 1 ML VIAL IV ONE (14:05)
[2018-09-17] MEDS ORDERED: Nicotine GUM* 2 MG PO PRN (14:06)
[2018-09-17] MEDS ORDERED: Lorazepam PYXIS KEY ONE (14:12)
--- NOTE | 2018-09-17 14:15 | ED ---
HPI Chest Pain - HPI Summary HPI Summary: This patient is a 68 year old M brought in by ambulance to [facility] with a chief complaint of CP and SOB since 13:00. Patient says that he thinks he is losing it and he does not feel safe. Patient notes he feels the swann are moving in on him. The patient rates the pain 0/10 in severity. Symptoms aggravated by nothing. Symptoms alleviated by nothing. Patient smokes. Patient takes insulin. The patient is a [place] and he says he does not want to hurt anyone. Patient has hx of PTSD, anxiety, DM, and COPD. - History of Current Complaint Chief Complaint: EDChestPainROMI Time Seen by Provider: 09/17/18 14:02 Hx Obtained From: Patient Onset/Duration: Started Minutes Ago, Atraumatic, Still Present Timing: Constant Pain Intensity: 0 Pain Scale Used: 0-10 Numeric Chest Pain Radiates: No Character: Dyspnea at Rest, Pressure/Squeezing Aggravating Factor(s): Nothing Alleviating Factor(s): Nothing Associated Signs and Symptoms: Positive: Chest Pain, Anxiety, Shortness of Breath - Additional Pertinent History Primary Care Physician: [id number] - Allergy/Home Medications Allergies/Adverse Reactions: Allergies Allergy/AdvReac Type Severity Reaction Status Date / Time codeine Allergy Intermediate GI Upset Verified 04/09/18 18:45 influenza virus vaccine, Allergy Unknown Verified 04/09/18 18:45 specific Reaction Details shrimp Allergy Severe Hives Uncoded 04/09/18 18:45 PMH/Surg Hx/FS Hx/Imm Hx Endocrine/Hematology History: Reports: Hx Diabetes Denies: Hx Anticoagulant Therapy, Hx Thyroid Disease Cardiovascular History: Reports: Hx Angina, Hx Hypercholesterolemia, Hx Hypertension Denies: Hx Congestive Heart Failure, Hx Coronary Artery Disease, Hx Pacemaker /ICD Respiratory History: Reports: Hx Chronic Obstructive Pulmonary Disease (COPD), Other Respiratory Problems/Disorders - COPD Denies: Hx Asthma GI History: Reports: Hx Gastroesophageal Reflux Disease - GERD/PUD, Hx Gastrointestinal Bleed, Other GI Disorders - PANCREATITIS, gastritis Denies: Hx Ulcer Musculoskeletal History: Reports: Hx Arthritis, Hx Back Problems - CHRONIC Denies: Hx Bursitis, Hx Congenital Bone Abnormalities Sensory History: Reports: Hx Contacts or Glasses, Hx Vision Problem - s/p eye surgery, Hx Deafness - [place], Hx Hearing Aid, Hx Hearing Problem Opthamlomology History: Reports: Hx Contacts or Glasses, Hx Vision Problem - s/ p eye surgery Neurological History: Denies: Hx Dementia, Hx Seizures Psychiatric History: Reports: Hx Anxiety, Hx Depression, Hx Panic Disorder, Hx Post Traumatic Stress Disorder - [place] Vet, Hx Inpatient Treatment - 30 days in [place] for drug and alcohol tx, Hx Substance Abuse Denies: Hx Attention Deficit Hyperactivity Disorder, Hx Eating Disorder, Hx Community Mental Health Tx, Hx Schizophrenia, Hx Bipolar Disorder, Hx Suicide Attempt, Hx of Violent Episodes Against Others, Other Psychiatric Issues/ Disorders - Cancer History Cancer Type, Location and Year: SKIN CANCER - Surgical History Surgery Procedure, Year, and Place: Skin CA, removed in left side front head. Facial fracture/eye repair right side Infectious Disease History: No Infectious Disease History: Denies: Traveled Outside the US in Last 30 Days - Family History Known Family History: Positive: Cardiac Disease - Father at age 43 - Social History Alcohol Use: Occasionally Alcohol Amount: States he goes months without drinking and then binges Hx Substance Use: Yes Substance Use Type: Reports: Marijuana Substance Use Comment - Amount & Last Used: THC "rarely" Hx Tobacco Use: Yes Smoking Status (MU): Heavy Every Day Tobacco Smoker Type: Cigarettes Amount Used/How Often: 10 cigarettes/day Length of Time of Smoking/Using Tobacco: 50 years Have You Smoked in the Last Year: Yes Review of Systems Negative: Fever Negative: Epistaxis Positive: Chest Pain Positive: Shortness Of Breath Positive: Anxious All Other Systems Reviewed And Are Negative: Yes Physical Exam - Summary Physical Exam Summary: Appearance: The patient is well-nourished in no acute distress and in no acute pain. Skin: The skin is warm and dry and skin color reflects adequate perfusion. HEENT: The head is normocephalic and atraumatic. The pupils are equal and reactive. The conjunctivae are clear and without drainage. Nares are patent and without drainage. Mouth reveals moist mucous membranes and the throat is without erythema and exudate. The external ears are intact. The ear canals are patent and without drainage. The tympanic membranes are intact. Neck: The neck is supple with full range of motion and non-tender. There are no carotid bruits. There is no neck vein distension. Respiratory: Chest is non-tender. Lungs are clear to auscultation and breath sounds are symmetrical and equal. Cardiovascular: Heart is regular rate and rhythm. There is no murmur or rub auscultated. There is no peripheral edema and pulses are symmetrical and equal. Abdomen: The abdomen is soft and non-tender. There are normal bowel sounds heard in all four quadrants and there is no organomegaly palpated. Musculoskeletal: There is no back tenderness noted. Extremities are non-tender with full range of motion. There is good capillary refill. There is no peripheral edema or calf tenderness elicited. Neurological: Patient is alert and oriented to person, place and time. The patient has symmetrical motor strength in all four extremities. Cranial nerves are grossly intact. Deep tendon reflexes are symmetrical and equal in all four extremities. Psychiatric: Emotional lability Triage Information Reviewed: Yes Vital Signs On Initial Exam: Initial Vitals Temp Pulse Resp BP Pulse Ox 97.8 F 77 19 166/91 99 09/17/18 14:03 09/17/18 14:03 09/17/18 14:03 09/17/18 14:03 09/17/18 14:03 Vital Signs Reviewed: Yes Diagnostics - Vital Signs Vital Signs Temp Pulse Resp BP Pulse Ox 09/17/18 14:03 97.8 F 77 19 166/91 99 - Laboratory Result Diagrams: 09/17/18 14:37 09/17/18 14:37 Lab Statement: Any lab studies that have been ordered have been reviewed, and results considered in the medical decision making process. - EKG 14:00 Cardiac Rate: NL EKG Rhythm: Sinus Rhythm Summary of EKG Findings: Sinus rhythm at 77 bpm Chest Pain Course/Dx - Course Course Of Treatment: Mr. Schmidt presented very upset and labile. He has PTSD from [place] and drinks a lot. He admits to drinking today. He comes in asking for a shot of Ativan and a mental health evaluation. We gave him a shot of Ativan and about 45 minutes later he requested to be discharged stating that he felt a lot better. Although he admitted to drinking alcohol clinically he did not appear to be intoxicated either on arrival or after the Ativan. Therefore he was discharged and he was not driving. After he left his lab values returned and his blood alcohol was elevated but again clinically he was sober and he is tolerant to alcohol use chronically. - Diagnoses Provider Diagnoses: Anxiety Discharge - Sign-Out/Discharge Documenting (check all that apply): Patient Departure - discharge home Patient Received Moderate/Deep Sedation with Procedure: No - Discharge Plan Condition: Stable Disposition: HOME Patient Education Materials: Anxiety (ED) Referrals: Mckinley Meredith MD [Primary Care Provider] - Additional Instructions: Follow up with your primary care physician in 1-2 days. Return to the emergency with any new or worsening symptoms. - Billing Disposition and Condition Condition: STABLE Disposition: Home - Attestation Statements Document Initiated by Scribe: Yes Documenting Scribe: Charmaine Durbin Provider For Whom Pennie is Documenting (Include Credential): Kristian Cleveland MD Scribe Attestation: Charmaine Joens, scribed for Kristian Cleveland MD on 09/17/18 at 1818. Scribe Documentation Reviewed: Yes Provider Attestation: The documentation as recorded by the Charmaine logan accurately reflects the service I personally performed and the decisions made by Kristian cedillo MD Status of Scribe Document: Viewed
[2018-09-17 14:46] LABS: ABS Basophils 0.1 10^3/ul (0-0.2); ABS Eosinophils 0.1 10^3/ul (0-0.6); ABS Lymphocytes 2.5 10^3/ul (1.0-4.8); ABS Monocytes 0.5 10^3/ul (0-0.8); ABS Nucleated RBC 0 10^3/ul; Eosinophil % 1.8 %; Hematocrit 49 % (36-46); Hemoglobin 16.6 g/dL (14.0-18.0); Lymphocyte % 34.8 %; Mean Corpuscular HGB Conc 34 g/dL (31-36); Mean Corpuscular Hemoglobin 34 pg (27-31); Mean Corpuscular Volume 99 fL (80-94); Mean Platelet Volume 7.1 fL (7.4-10.4); Nucleated Red Blood Cells % 0; Platelet Count 315 10^3/uL (150-450); Red Blood Count 4.93 10^6 /uL (4.18-5.48); Red Cell Distribution Width 13 % (10.5-15); White Blood Count 7.2 10^3/uL (3.5-10.8)
[2018-09-17 15:02] LABS: ALT 53 U/L (7-52); AST 80 U/L (13-39); Albumin 4.6 g/dL (3.2-5.2); Albumin/Globulin Ratio 1.6 (1-3); Alkaline Phosphatase 68 U/L (34-104); Anion Gap 17 mmol/L (2-11); BUN/Creatinine Ratio 11.5 (8-20); Blood Urea Nitrogen 9 mg/dL (6-24); CO2 Carbon Dioxide 19 mmol/L (22-32); Calcium 9.4 mg/dL (8.6-10.3); Chloride 102 mmol/L (101-111); EGFR African American 119.4 (>60); EGFR Non-African American 98.7 (>60); Globulin 2.8 g/dL (2-4); Glucose 145 mg/dL (70-100); Sodium 138 mmol/L (135-145); Total Protein 7.4 g/dL (6.4-8.9)
[2018-09-17 15:08] LABS: Acetaminophen < 15 mcg/mL; Alcohol 252 mg/dL (<10); Salicylate < 2.50 mg/dL (<30)
[2018-09-17 15:23] LABS: TSH (Thyroid Stimulating Horm) 0.86 mcIU/mL (0.34-5.60)
[2018-09-17 15:26] VITALS: BP 180/98
== END 2018-09-17 15:30 | disposition home or self-care (01) ==
LOC: ED 13:56
DX: F41.9 Anxiety disorder, unspecified (principal); R94.31 Abnormal electrocardiogram [ECG] [EKG]; I10 Essential (primary) hypertension; E11.9 Type 2 diabetes mellitus without complications; J44.9 Chronic obstructive pulmonary disease, unspecified; F43.10 Post-traumatic stress disorder, unspecified; E78.00 Pure hypercholesterolemia, unspecified; K21.9 Gastro-esophageal reflux disease without esophagitis; K86.1 Other chronic pancreatitis; K29.70 Gastritis, unspecified, without bleeding; F32.9 Major depressive disorder, single episode, unspecified; M19.90 Unspecified osteoarthritis, unspecified site; F17.210 Nicotine dependence, cigarettes, uncomplicated; Z88.5 Allergy status to narcotic agent; Z88.7 Allergy status to serum and vaccine; Z85.828 Personal history of other malignant neoplasm of skin
CPT/HCPCS: 36415; 80053; 80320; 80329; 84443; 85025; 93005; 96374; 99283; G0480; J2060

== ENCOUNTER 2018-09-18 22:26 | Emergency (ER) | payer OTHER ==
--- NOTE | 2018-09-18 22:37 | ED ---
Psychiatric Complaint - HPI Summary HPI Summary: A 68 y/o M brought in by ambulance presents to ED with c/o severe anxiety onset this evening. He said it felt like the swann are moving in on him. He felt better when EMS and police arrived at his home. He denies SI, but states "I'm not afraid to ." Pert PMHx: combat-related PTSD. Pt is under a lot of stress recently, and is working on moving to [place] to be closer to his 's family, his father in law is ill. He's currently selling his home. He is scheduled to see Dr. Meredith at the [facility] next week. Afterwards, he is going back to [place]. He takes insulin, hydroxyzine, librium and klonopin, but is out of his Klonopin. - History Of Current Complaint Chief Complaint: EDPsychosocial Time Seen by Provider: 09/18/18 22:31 Hx Obtained From: Patient Onset/Duration: Sudden Onset, Still Present - but much improved Timing: Constant Severity Initially: Severe Severity Currently: Mild Character: Anxious Aggravating Factor(s): Recent Stress, Medication Non-compliance Alleviating Factor(s): Medication Has Suicidal: Denies: Thoughts - Allergies/Home Medications Allergies/Adverse Reactions: Allergies Allergy/AdvReac Type Severity Reaction Status Date / Time codeine Allergy Intermediate GI Upset Verified 09/18/18 22:32 influenza virus vaccine, Allergy Unknown Verified 09/18/18 22:32 specific Reaction Details shrimp Allergy Severe Hives Uncoded 09/18/18 22:32 PMH/Surg Hx/FS Hx/Imm Hx Previously Healthy: No Endocrine/Hematology History: Reports: Hx Diabetes Denies: Hx Anticoagulant Therapy, Hx Thyroid Disease Cardiovascular History: Reports: Hx Angina, Hx Hypercholesterolemia, Hx Hypertension Denies: Hx Congestive Heart Failure, Hx Coronary Artery Disease, Hx Pacemaker /ICD Respiratory History: Reports: Hx Chronic Obstructive Pulmonary Disease (COPD), Other Respiratory Problems/Disorders - COPD Denies: Hx Asthma GI History: Reports: Hx Gastroesophageal Reflux Disease - GERD/PUD, Hx Gastrointestinal Bleed, Other GI Disorders - PANCREATITIS, gastritis Denies: Hx Ulcer Musculoskeletal History: Reports: Hx Arthritis, Hx Back Problems - CHRONIC Denies: Hx Bursitis, Hx Congenital Bone Abnormalities Sensory History: Reports: Hx Contacts or Glasses, Hx Vision Problem - s/p eye surgery, Hx Deafness - [place], Hx Hearing Aid, Hx Hearing Problem Opthamlomology History: Reports: Hx Contacts or Glasses, Hx Vision Problem - s/ p eye surgery Neurological History: Denies: Hx Dementia, Hx Seizures Psychiatric History: Reports: Hx Anxiety, Hx Depression, Hx Panic Disorder, Hx Post Traumatic Stress Disorder - [place] Vet, Hx Inpatient Treatment - 30 days in [place] for drug and alcohol tx, Hx Substance Abuse Denies: Hx Attention Deficit Hyperactivity Disorder, Hx Eating Disorder, Hx Community Mental Health Tx, Hx Schizophrenia, Hx Bipolar Disorder, Hx Suicide Attempt, Hx of Violent Episodes Against Others, Other Psychiatric Issues/ Disorders - Cancer History Cancer Type, Location and Year: SKIN CANCER - Surgical History Surgery Procedure, Year, and Place: Skin CA, removed in left side front head. Facial fracture/eye repair right side Infectious Disease History: No Infectious Disease History: Reports: Traveled Outside the in Last 30 Days - Family History Known Family History: Positive: Cardiac Disease - Father at age 43 - Social History Occupation: Disabled Lives: With Family Alcohol Use: Occasionally Alcohol Amount: States he goes months without drinking and then binges Hx Substance Use: Yes Substance Use Type: Reports: Marijuana Substance Use Comment - Amount & Last Used: THC "rarely" Hx Tobacco Use: Yes Smoking Status (MU): Heavy Every Day Tobacco Smoker Type: Cigarettes Amount Used/How Often: 10 cigarettes/day Length of Time of Smoking/Using Tobacco: 50 years Have You Smoked in the Last Year: Yes Review of Systems Negative: Fever Negative: Cough Positive: Anxious. Negative: Other - neg: SI All Other Systems Reviewed And Are Negative: Yes Physical Exam - Summary Physical Exam Summary: Appearance: Well-appearing, Well-nourished, lying in bed comfortable Skin: Warm, dry, no obvious rash Eyes: sclera anicteric, no conjunctival pallor ENT: mucous membranes moist Neck: deferred Respiratory: No signs of respiratory distress Cardiovascular: Appears well perfused, pulses are nml Abdomen: deferred Musculoskeletal: Moving all 4 extremities without obvious discomfort Neurological: Awake and alert, mentation is normal, speech is fluent and appropriate Psychiatric: affect is normal, does not appear anxious or depressed Triage Information Reviewed: Yes Vital Signs On Initial Exam: Initial Vitals Temp Pulse Resp BP Pulse Ox 97.3 F 83 18 164/99 98 09/18/18 22:31 09/18/18 22:31 09/18/18 22:31 09/18/18 22:31 09/18/18 22:31 Vital Signs Reviewed: Yes Diagnostics - Vital Signs Vital Signs Temp Pulse Resp BP Pulse Ox 09/18/18 22:31 97.3 F 83 18 164/99 98 - Laboratory Lab Statement: Any lab studies that have been ordered have been reviewed, and results considered in the medical decision making process. Course/Dx - Course Course Of Treatment: Pt is a 68 y/o M with PTSD presenting with severe anxiety onset this evening. Pt was seen on 09/14 and 09/17 for same sx. Pt is under a lot of stress due to selling his home and moving to [place], his father in law is ill. He is scheduled to see Dr. Meredith at the [facility] next week. Pt is happy with a weeks worth of Klonipin to last him until his [facility]. Will discharge patient home. - Differential Dx/Clinical Impression Provider Diagnosis: Anxiety Discharge - Sign-Out/Discharge Documenting (check all that apply): Patient Departure - DC Patient Received Moderate/Deep Sedation with Procedure: No - Discharge Plan Condition: Good Disposition: HOME Prescriptions: clonazePAM TAB(*) [KlonoPIN TAB(*)] 1 mg PO BID #14 tab MDD 2 TABS Patient Education Materials: Anxiety (ED) Referrals: Mckinley Meredith MD [Primary Care Provider] - - Billing Disposition and Condition Condition: GOOD Disposition: Home - Attestation Statements Document Initiated by Scribe: Yes Documenting Scribe: Laura Lindsay Provider For Whom Scribe is Documenting (Include Credential): Dr. Kristian Duarte MD Scribe Attestation: Robert, Laura Lindsay scribed for Dr. Kristian Duarte MD on 09/19/18 at 0434. Scribe Documentation Reviewed: Yes Provider Attestation: The documentation as recorded by the Laura logan accurately reflects the service I personally performed and the decisions made by me, Dr. Kristian Duarte MD Status of Scribe Document: Viewed
[2018-09-18] MEDS ORDERED: clonazePAM TAB(*) 1 MG PO ONE (22:41)
[2018-09-18] MEDS ORDERED: Ondansetron ODT TAB* 4 MG SL ONE (22:56)
[2018-09-18 23:20] VITALS: BP 136/97
== END 2018-09-18 23:12 | disposition home or self-care (01) ==
LOC: ED 22:26
DX: F41.9 Anxiety disorder, unspecified (principal); F17.210 Nicotine dependence, cigarettes, uncomplicated; E11.9 Type 2 diabetes mellitus without complications; E78.00 Pure hypercholesterolemia, unspecified; I10 Essential (primary) hypertension; J44.9 Chronic obstructive pulmonary disease, unspecified; K21.9 Gastro-esophageal reflux disease without esophagitis; Z85.828 Personal history of other malignant neoplasm of skin; F32.9 Major depressive disorder, single episode, unspecified; F90.9 Attention-deficit hyperactivity disorder, unspecified type
CPT/HCPCS: 99282; A9270-GY

== ENCOUNTER → 2018-09-28 16:33 | Emergency (ER) | payer OTHER ==
[~2018-09-28 16:33] MED LIST: LORazepam TAB(*) 1 MG PO ONE; Nicotine GUM* 2 MG PO PRN
--- NOTE | 2018-09-28 17:17 | ED ---
Psychiatric Complaint - HPI Summary HPI Summary: Pt is a 68 y/o M presenting to the ED brought in by [employer] for a psychiatric complaint. The pt has hx of PTSD from being in combat. He is actively asking for help or to go somewhere where he can get help. He was recently here, given Klonopin, and he followed up with Dr. Meredith who gave him another Klonopin prescription, but he presents today with extreme anxiety, asking for something to help it. D/t leaving AMA last time, the pt stated I promise you I will stay under your care until you release me, you can count on that. Pt tearful at bedside. He denies any fevers. - History Of Current Complaint Chief Complaint: EDSubstanceAbuse Time Seen by Provider: 09/28/18 16:47 Hx Obtained From: Patient Onset/Duration: Gradual Onset, Lasting Days, Still Present Timing: Days Severity Initially: Moderate Severity Currently: Severe Character: Depressed, Anxious Aggravating Factor(s): Other - PTSD Alleviating Factor(s): Nothing - Allergies/Home Medications Allergies/Adverse Reactions: Allergies Allergy/AdvReac Type Severity Reaction Status Date / Time codeine Allergy Intermediate GI Upset Verified 09/18/18 22:32 influenza virus vaccine, Allergy Unknown Verified 09/18/18 22:32 specific Reaction Details shrimp Allergy Severe Hives Uncoded 09/18/18 22:32 PMH/Surg Hx/FS Hx/Imm Hx Previously Healthy: No Endocrine/Hematology History: Reports: Hx Diabetes Denies: Hx Anticoagulant Therapy, Hx Thyroid Disease Cardiovascular History: Reports: Hx Angina, Hx Hypercholesterolemia, Hx Hypertension Denies: Hx Congestive Heart Failure, Hx Coronary Artery Disease, Hx Pacemaker /ICD Respiratory History: Reports: Hx Chronic Obstructive Pulmonary Disease (COPD), Other Respiratory Problems/Disorders - COPD Denies: Hx Asthma GI History: Reports: Hx Gastroesophageal Reflux Disease - GERD/PUD, Hx Gastrointestinal Bleed, Other GI Disorders - PANCREATITIS, gastritis Denies: Hx Ulcer Musculoskeletal History: Reports: Hx Arthritis, Hx Back Problems - CHRONIC Denies: Hx Bursitis, Hx Congenital Bone Abnormalities Sensory History: Reports: Hx Contacts or Glasses, Hx Vision Problem - s/p eye surgery, Hx Deafness - [place], Hx Hearing Aid, Hx Hearing Problem Opthamlomology History: Reports: Hx Contacts or Glasses, Hx Vision Problem - s/ p eye surgery Neurological History: Denies: Hx Dementia, Hx Seizures Psychiatric History: Reports: Hx Anxiety, Hx Depression, Hx Panic Disorder, Hx Post Traumatic Stress Disorder - [place] Vet, Hx Inpatient Treatment - 30 days in [place] for drug and alcohol tx, Hx Substance Abuse Denies: Hx Attention Deficit Hyperactivity Disorder, Hx Eating Disorder, Hx Community Mental Health Tx, Hx Schizophrenia, Hx Bipolar Disorder, Hx Suicide Attempt, Hx of Violent Episodes Against Others, Other Psychiatric Issues/ Disorders - Cancer History Cancer Type, Location and Year: SKIN CANCER - Surgical History Surgery Procedure, Year, and Place: Skin CA, removed in left side front head. Facial fracture/eye repair right side - Immunization History Date of Tetanus Vaccine: unk Date of Influenza Vaccine: unk Infectious Disease History: No Infectious Disease History: Denies: Traveled Outside the [place] in Last 30 Days - Family History Known Family History: Positive: Cardiac Disease - Father at age 43 - Social History Alcohol Use: Daily Alcohol Amount: States he goes months without drinking and then binges Hx Substance Use: Yes Substance Use Type: Reports: Marijuana Substance Use Comment - Amount & Last Used: THC "rarely," meth Hx Tobacco Use: Yes Smoking Status (MU): Heavy Every Day Tobacco Smoker Type: Cigarettes Amount Used/How Often: 10 cigarettes/day Length of Time of Smoking/Using Tobacco: 50 years Have You Smoked in the Last Year: Yes Review of Systems Negative: Fever Positive: Anxious, Depressed All Other Systems Reviewed And Are Negative: Yes Physical Exam - Summary Physical Exam Summary: Appearance: The patient is well-nourished in no acute distress and in no acute pain. Skin: The skin is warm and dry and skin color reflects adequate perfusion. HEENT: The head is normocephalic and atraumatic. The pupils are equal and reactive. The conjunctivae are clear and without drainage. Nares are patent and without drainage. Mouth reveals moist mucous membranes and the throat is without erythema and exudate. The external ears are intact. The ear canals are patent and without drainage. The tympanic membranes are intact. Neck: The neck is supple with full range of motion and non-tender. There are no carotid bruits. There is no neck vein distension. Respiratory: Chest is non-tender. Lungs are clear to auscultation and breath sounds are symmetrical and equal. Cardiovascular: Heart is regular rate and rhythm. There is no murmur or rub auscultated. There is no peripheral edema and pulses are symmetrical and equal. Abdomen: The abdomen is soft and non-tender. There are normal bowel sounds heard in all four quadrants and there is no organomegaly palpated. Musculoskeletal: There is no back tenderness noted. Extremities are non-tender with full range of motion. There is good capillary refill. There is no peripheral edema or calf tenderness elicited. Neurological: Patient is alert and oriented to person, place and time. The patient has symmetrical motor strength in all four extremities. Cranial nerves are grossly intact. Deep tendon reflexes are symmetrical and equal in all four extremities. Psychiatric: The patient has an appropriate affect and does not exhibit any anxiety or depression. Triage Information Reviewed: Yes Vital Signs On Initial Exam: Initial Vitals Temp Pulse Resp BP Pulse Ox 97.8 F 92 20 145/104 97 09/28/18 16:40 09/28/18 16:40 09/28/18 16:40 09/28/18 16:40 09/28/18 16:40 Vital Signs Reviewed: Yes Diagnostics - Vital Signs Vital Signs Temp Pulse Resp BP Pulse Ox 09/28/18 17:00 20 09/28/18 16:40 97.8 F 92 20 145/104 97 - Laboratory Lab Statement: Any lab studies that have been ordered have been reviewed, and results considered in the medical decision making process. Course/Dx - Course Course Of Treatment: Mr. Schmidt apparently called the police to bring him here because of anxiety. He is concerned that there is a member the community he was out to get him and admits to drinking some alcohol tonight. He has a history of PTSD and anxiety and is waiting to hand picker a prescription for Klonopin written by his PCP. He was emotionally labile here but nontoxic in appearance with stable vital signs. He did not appear acutely intoxicated. He was treated with Ativan here and observed for 3 hours to make sure that he was safe. He was clinically sober and wanted to go home at that point and therefore he was discharged in stable condition. - Differential Dx/Clinical Impression Provider Diagnosis: Anxiety Discharge - Sign-Out/Discharge Documenting (check all that apply): Patient Departure Patient Received Moderate/Deep Sedation with Procedure: No - Discharge Plan Condition: Stable Disposition: HOME Referrals: Mckinley Meredith MD [Primary Care Provider] - Additional Instructions: Please follow up with Dr. Meredith within the next 2-3 days. Return to the ED with any new or worsening symptoms. - Billing Disposition and Condition Condition: STABLE Disposition: Home - Attestation Statements Document Initiated by Michaelaibe: Yes Documenting Scribe: aMrta Null Provider For Whom Pennie is Documenting (Include Credential): Kristian Cleveland MD. Scribe Attestation: Marta Jones, scribed for Kristian Cleveland MD. on 09/28/18 at 2100. Scribe Documentation Reviewed: Yes Provider Attestation: The documentation as recorded by the michaelaibMarta fierro accurately reflects the service I personally performed and the decisions made by me, Kristian Cleveland MD. Status of Scribe Document: Viewed
[2018-09-28 20:17] VITALS: BP 154/96
== END | disposition home or self-care (01) ==
LOC: ED 16:33
DX: F41.9 Anxiety disorder, unspecified (principal); I10 Essential (primary) hypertension; E11.9 Type 2 diabetes mellitus without complications; E78.00 Pure hypercholesterolemia, unspecified; J44.9 Chronic obstructive pulmonary disease, unspecified; K21.9 Gastro-esophageal reflux disease without esophagitis; F32.9 Major depressive disorder, single episode, unspecified; F17.210 Nicotine dependence, cigarettes, uncomplicated; Z88.5 Allergy status to narcotic agent; Z88.7 Allergy status to serum and vaccine; Z85.828 Personal history of other malignant neoplasm of skin
CPT/HCPCS: 99283; A9270-GY

== ENCOUNTER 2018-09-29 21:19 | Emergency (ER) | payer OTHER ==
[2018-09-29] MEDS ORDERED: clonazePAM TAB(*) 0.5 MG PO ONE (21:30)
--- NOTE | 2018-09-29 21:33 | ED ---
Psychiatric Complaint - HPI Summary HPI Summary: This patient is a 68 year old male brought in by ambulance to [facility] with a chief complaint of MHE since this evening. Patient states that he is no feeling safe at home alone and called EMS for MHE. Patient denies SI and states that he is anxious. Patient states that he has been drinking whiskey to try and ease his constant anxiety since he ran out of medicine, but it is not helping. Patient states that he has seen Dr. Eaton, who prescribed medicine, but the medicine has not arrived in the mail. - History Of Current Complaint Hx Obtained From: Patient Onset/Duration: Lasting Hours, Still Present Timing: Constant Severity Currently: Mild Character: Anxious Aggravating Factor(s): Nothing Alleviating Factor(s): Nothing Has Suicidal: Denies: Thoughts Ingestion History: Type/Name Of Drug - whiskey - Allergies/Home Medications Allergies/Adverse Reactions: Allergies Allergy/AdvReac Type Severity Reaction Status Date / Time codeine Allergy Intermediate GI Upset Verified 09/18/18 22:32 influenza virus vaccine, Allergy Unknown Verified 09/18/18 22:32 specific Reaction Details shrimp Allergy Severe Hives Uncoded 09/18/18 22:32 PMH/Surg Hx/FS Hx/Imm Hx Previously Healthy: No Endocrine/Hematology History: Reports: Hx Diabetes Denies: Hx Anticoagulant Therapy, Hx Thyroid Disease Cardiovascular History: Reports: Hx Angina, Hx Hypercholesterolemia, Hx Hypertension Denies: Hx Congestive Heart Failure, Hx Coronary Artery Disease, Hx Pacemaker /ICD Respiratory History: Reports: Hx Chronic Obstructive Pulmonary Disease (COPD), Other Respiratory Problems/Disorders - COPD Denies: Hx Asthma GI History: Reports: Hx Gastroesophageal Reflux Disease - GERD/PUD, Hx Gastrointestinal Bleed, Other GI Disorders - PANCREATITIS, gastritis Denies: Hx Ulcer Musculoskeletal History: Reports: Hx Arthritis, Hx Back Problems - CHRONIC Denies: Hx Bursitis, Hx Congenital Bone Abnormalities Sensory History: Reports: Hx Contacts or Glasses, Hx Vision Problem - s/p eye surgery, Hx Deafness - [place], Hx Hearing Aid, Hx Hearing Problem Opthamlomology History: Reports: Hx Contacts or Glasses, Hx Vision Problem - s/ p eye surgery Neurological History: Denies: Hx Dementia, Hx Seizures Psychiatric History: Reports: Hx Anxiety, Hx Depression, Hx Panic Disorder, Hx Post Traumatic Stress Disorder - [place] Vet, Hx Inpatient Treatment - 30 days in [place] for drug and alcohol tx, Hx Substance Abuse Denies: Hx Attention Deficit Hyperactivity Disorder, Hx Eating Disorder, Hx Community Mental Health Tx, Hx Schizophrenia, Hx Bipolar Disorder, Hx Suicide Attempt, Hx of Violent Episodes Against Others, Other Psychiatric Issues/ Disorders - Cancer History Cancer Type, Location and Year: SKIN CANCER - Surgical History Surgery Procedure, Year, and Place: Skin CA, removed in left side front head. Facial fracture/eye repair right side - Immunization History Date of Tetanus Vaccine: unk Date of Influenza Vaccine: unk Infectious Disease History: No Infectious Disease History: Denies: Traveled Outside the [place] in Last 30 Days - Family History Known Family History: Positive: Cardiac Disease - Father at age 43 - Social History Lives: Alone Alcohol Use: Daily Alcohol Amount: States he goes months without drinking and then binges Hx Substance Use: Yes Substance Use Type: Reports: Marijuana Substance Use Comment - Amount & Last Used: THC "rarely," meth Hx Tobacco Use: Yes Smoking Status (MU): Heavy Every Day Tobacco Smoker Type: Cigarettes Amount Used/How Often: 10 cigarettes/day Length of Time of Smoking/Using Tobacco: 50 years Have You Smoked in the Last Year: Yes Review of Systems Negative: Fever Positive: Anxious, Depressed, Other - EtOH intoxication All Other Systems Reviewed And Are Negative: Yes Physical Exam - Summary Physical Exam Summary: Appearance: Appears intoxicated, slight slurring of speech Skin: Warm, dry, no obvious rash Eyes: sclera anicteric, no conjunctival pallor ENT: mucous membranes moist Neck: deferred Respiratory: No signs of respiratory distress Cardiovascular: Appears well perfused, pulses are nml Abdomen: deferred Musculoskeletal: Moving all 4 extremities without obvious discomfort Triage Information Reviewed: Yes Vital Signs On Initial Exam: Initial Vitals Temp Pulse Resp BP Pulse Ox 97.8 F 88 18 132/91 97 09/29/18 21:20 09/29/18 21:20 09/29/18 21:20 09/29/18 21:20 09/29/18 21:20 Vital Signs Reviewed: Yes Diagnostics - Vital Signs Vital Signs Temp Pulse Resp BP Pulse Ox 09/29/18 21:20 97.8 F 88 18 132/91 97 - Laboratory Lab Statement: Any lab studies that have been ordered have been reviewed, and results considered in the medical decision making process. Re-Evaluation - Re-Evaluation First Eval Re-Evaluation Time: 21:42 Comment: The patient is becoming upset that he is not getting IV benzos. He wishes to leave. He is mildly intoxicated but I do believe he has capacity to make the decision to leave. Of course he will not be given any benzos. Course/Dx - Course Course Of Treatment: This is a 68-year-old man with a history of anxiety, reportedly on chronic Klonopin, who presents again with complaints of anxiety. He has been drinking and appears mildly intoxicated. Last time I saw him, on September 18, he indicated that he was going to be traveling back to [place] and I gave him enough Klonopin to get him through that time, but clearly his story is not truthful. He now claims to be awaiting a prescription for Klonopin that is coming by mail through the [place]. I informed him that we cannot provide any further benzodiazepine going forward, particularly as he is abusing alcohol. I will give him a single dose here. - Differential Dx/Clinical Impression Provider Diagnosis: Anxiety, Alcohol intoxication Discharge - Sign-Out/Discharge Documenting (check all that apply): Patient Departure Patient Received Moderate/Deep Sedation with Procedure: No - Discharge Plan Condition: Good Disposition: HOME Patient Education Materials: Abuse of Alcohol (ED), Anxiety (ED) Referrals: Mckinley Meredith MD [Primary Care Provider] - - Billing Disposition and Condition Condition: GOOD Disposition: Home - Attestation Statements Document Initiated by Pennie: Yes Documenting Scribe: Sheila Dalal Provider For Whom Pennie is Documenting (Include Credential): MD Michaela Stoutibvadim Attestation: ISheila scribed for Kristian Duarte MD on 09/30/18 at 0608. Scribe Documentation Reviewed: Yes Provider Attestation: The documentation as recorded by the Sheila logan accurately reflects the service I personally performed and the decisions made by me, Kristian Duarte MD Status of Pennie Document: Viewed
[2018-09-29 21:56] VITALS: BP 0/0
== END 2018-09-29 21:55 | disposition home or self-care (01) ==
LOC: ED 21:19
DX: F41.9 Anxiety disorder, unspecified (principal); F10.129 Alcohol abuse with intoxication, unspecified; E11.9 Type 2 diabetes mellitus without complications; J44.9 Chronic obstructive pulmonary disease, unspecified; K21.9 Gastro-esophageal reflux disease without esophagitis; F41.0 Panic disorder [episodic paroxysmal anxiety]; Z88.7 Allergy status to serum and vaccine; Z88.5 Allergy status to narcotic agent; Z91.013 Allergy to seafood; F17.210 Nicotine dependence, cigarettes, uncomplicated
CPT/HCPCS: 99282